=== PATIENT | female | born 1970 | race Caucasian/White ===

== ENCOUNTER 2016-12-27 19:10 | Emergency (ER) | payer OTHER ==
[~2016-12-27] VITALS: Ht 182.9 cm; Wt 130.0 kg
[~2016-12-27 19:10] MED LIST: LEVO125T5 PO; PANT40TA PO
[2016-12-27 19:13] VITALS: TEMP 36.6; Ht 182.9 cm; Wt 130.0 kg
[2016-12-27] MEDS ORDERED: PROPARACAINE HCL 0.5% OP SOLN 15 ML BTL OP STA (19:27)
[2016-12-27] MEDS ORDERED: CIPROFLOXACIN HCL 0.3% OP SOLN 2.5 ML BTL OP ONE (21:45)
[2016-12-27 22:02] VITALS: BP 119/69; PULSE 57; O2SAT 99
--- NOTE | 2016-12-27 22:43 | EMERGENCY ROOM VISIT NOTE ---
History Report prepared by Vianney: Eber Julio Under the Supervision of: Dr. Houston Holland M.D. First contact with patient: 19:16 Chief Complaint: EYE ASSESSMENT Stated Complaint: L EYE IRRITATION History of Present Illness The patient is a 46 year old female who presents to the Emergency Room with complaints of constant, burning discomfort in her left eye beginning an hour ago. She currently rates her discomfort a 6/10 in severity. The patient states that she was doing dishes and splashed Aquaphenate in her eye by accident. She reports that the chemical is stored in a large container with a pump next to the sink. The patient notes that the pump neither works nor does the container close completely. She states that she was taking the pump out of the container, and it must have gotten caught on a shelf and flicked the chemical into her eye. The patient reports that the container states the chemical is corrosive and causes irreversible eye damage. She notes that she used a wet rag and water to clean her eye out. The patient reports that her vision seems okay. She denies wearing glasses and contacts. The patient also denies seeing an eye doctor before. Source of History: patient Onset: an hour ago Position: eye (left) Symptom Intensity: 6/10 Quality: burning Timing: constant Note: Denies: vision changes Review of Systems See HPI for pertinent positives & negatives. A total of 10 systems reviewed and were otherwise negative. Past Medical & Surgical Medical Problems: (1) Hypothyroidism Surgical Problems: (1) H/O colonoscopy (2) History of esophagogastroduodenoscopy (EGD) (3) History of tubal ligation (4) Hx of neck surgery Old medical records were reviewed. Nurse's notes were reviewed and I agree with. Family History Cancer Social History Smoking Status: Never Smoker Alcohol Use: none Drug Use: none Marital Status: Housing Status: lives with family Occupation Status: employed Current/Historical Medications Scheduled Levothyroxine Sodium (Levothyroxine Sodium), 1 TAB PO QAM Allergies Coded Allergies: No Known Allergies (Verified , 12/27/16) Physical Exam Vital Signs Date Time Temp Pulse Resp B/P (MAP) Pulse Ox O2 Delivery O2 Flow Rate FiO2 12/27/16 22:02 57 18 119/69 99 12/27/16 20:36 56 20 143/83 98 Room Air 12/27/16 19:13 36.6 62 19 149/84 97 Room Air Physical Exam General: Middle-aged female, no acute distress, breathing comfortably on room air. Normal speech HEENT: Normal cephalic atraumatic. Pupils are equal round and reactive to light. Left sclera has minimal injection. Extraocular movements are intact. Oropharynx is pink with moist mucous membranes. No swelling of the mouth lips or tongue. Neck: Supple with a midline trachea. No meningeal signs or stiffness, no JVD or bruits. No Stridor. Chest: Clear to auscultation bilaterally. No wheezes or rhonchi. No increased work of breathing. Heart: regular rate and rhythm. Abdomen: Soft nontender, nondistended without rebound guarding or rigidity. Extremities: No cyanosis clubbing or edema. No calf tenderness or assymetry Spine/Back. Non tender to palpation. No CVA tenderness Skin: Good turgor without rashes. No burn noticed. Neurologic exam: Cranial nerves two through 12 are intact. Motor and sensation are intact and symmetrical throughout. Visual Acuity (Post irrigation): Left eye 20/40-1. Right eye 20/25. Medical Decision & Procedures Medications Administered Medications (Trade) Dose Ordered Sig/[place] Route Start Time Stop Time Status Last Admin Dose Admin Proparacaine HCl (Alcaine 0.5% Oph Soln) 2 drops NOW STAT OP 12/27/16 19:27 12/27/16 19:29 DC 12/27/16 19:27 2 DROPS Ciprofloxacin HCl (Ciprofloxacin 0.3% Op Soln) 1 drops NOW ONCE OP 12/27/16 21:45 12/27/16 21:46 DC 12/27/16 21:54 1 DROPS ED Course 1919: Past medical records reviewed. The patient was evaluated in room C05, and a complete history and physical examination were performed. 1926: Ordered Proparacaine HCl 2 drops OP. 1947: I discussed the patient's case with Poison Control. They said it is corrosive and recommended irrigation. They believe it is a neutral chemical. 1957: The patient's eye was irrigated with 1L of fluid. The pH of her eye was 7.0 before and after the irrigation process. I ordered another 2L of fluid to be distributed over 20 minutes. 2031: I reevaluated the patient, and she is almost done the irrigation process. 2110 I checked the patient's visual acuity after irrigation. Refer to the physical exam for findings. 2111: I spoke with Poison Control again. They do not think the patient requires any further work-up. 2131: I discussed the patient's case with Dr. French, Optometry. He recommended giving the patient artificial tears and Ciloxan. 2144: Ordered Ciprofloxacin HCl 1 drop OP 2145: Upon reevaluation, the patient is resting comfortable. I discussed the results and treatment plan with her. She verbalized agreement of the treatment plan. The patient was discharged home. Medical Decision Differential diagnosis includes: chemical exposure, chemical burn, eye injury Medication Reconciliation: I attest that I have personally reviewed the patient' s current medication list. Blood pressure Screening: Patient was found to have normal blood pressure on screening and does not require follow-up. This patient comes in with a chemical exposure to her left eye, this happened about an hour prior to arrival. She did flush it a little bit at work. Her left eye is mildly injected along the sclera. There are vno facial mckeon. I did discuss this with the poison center felt that this was an irritant and was not significantly acidic or basic but near neutral they recommended checking her pH and irrigation. Her pH was 7.0 after liter of using the Justin lens was 7.0 as well, and I gave her a second liter of irrigation. She felt well after this. Her visual acuity is 20/40 minus 1 and 20/25 in the good eye. She does have some clear tearing in the left eye however. She seems less red since she' s been here . I did fluorsein stain her eye and looked at it with the slit lamp. There is no mckeon or significant lesions seen. I do think she can go home and I did discuss case Dr. French, millwright helper on-call, who agrees. We will start on antibiotic drops and artificial tears and they can see her for recheck tomorrow. The patient can call the office . She was given Ciloxan that she use one drop 4 times a day. Return if: Worsening of symptoms, fever or chills, change in vision, any new problems or concerns. Consults Time Called: 1946 Consulting Physician: Poison Control Returned Call: 1947 I discussed the patient's case with Poison Control. They said it is corrosive and recommended irrigation. They believe it is a neutral chemical. Additional Consults: Time Called: 2129 Consulted Physician: Dr. French, Optometry Returned Call: 2131 Additional Comments: I discussed the patient's case with Dr. French, Optometry. He recommended giving the patient artificial tears and Ciloxan. Impression Primary Impression: Chemical exposure of eye Additional Impression: Conjunctivitis Scribe Attestation The scribe's documentation has been prepared under my direction and personally reviewed by me in its entirety. I confirm that the note above accurately reflects all work, treatment, procedures, and medical decision making performed by me. Departure Information Dispostion Home / Self-Care Referrals Margoth Winslow D.O. (PCP) Forms HOME CARE DOCUMENTATION FORM, IMPORTANT VISIT INFORMATION, WORK / SCHOOL INSTRUCTIONS Patient Instructions My [facility] Additional Instructions Rest. Use artificial tears as needed for lubrication Use Ciloxan one drop every 4 hours in the left eye Return if: Increasing pain, problems with her vision, fever or chills, any new prompts concerns Follow-up with Dr. French tomorrow for recheck Problem Qualifiers
== END 2016-12-27 22:03 | disposition home or self-care (01) ==
LOC: C.EDB 19:11 → C.EDC 22:03
DX: H10.212 Acute toxic conjunctivitis, left eye (principal); T54.2X1A Toxic effect of corrosive acids and acid-like substances, accidental (unintentional), initial encounter; Y93.G1 Activity, food preparation and clean up; Y99.0 Civilian activity done for income or pay; Y92.89 Other specified places as the place of occurrence of the external cause; E03.9 Hypothyroidism, unspecified; Z98.51 Tubal ligation status; Z80.9 Family history of malignant neoplasm, unspecified; Z79.899 Other long term (current) drug therapy

== ENCOUNTER 2017-08-26 11:48 | Emergency (ER) | payer OTHER ==
[~2017-08-26] VITALS: Ht 182.9 cm; Wt 114.0 kg
[~2017-08-26 11:48] MED LIST changes: -PANT40TA PO
[2017-08-26 12:06] VITALS: TEMP 36.5; Ht 182.9 cm; Wt 114.0 kg
[2017-08-26 14:15] LABS: BASO % 0.9 %; BASO ABS # 0.06 K/uL (0-0.2); EOS % 12.4 %; EOS ABS # 0.83 K/uL (0-0.5); HEMATOCRIT 41.2 % (37-47); HEMOGLOBIN 14.5 g/dL (12.0-16.0); IG# 0.01 K/uL (0.00-0.02); LYMPH % 35.4 %; LYMPH ABS # 2.36 K/uL (1.2-3.4); MEAN CELL VOLUME 88.4 fL (80-100); MEAN CORPUSCULAR HEMOGLOBIN 31.1 pg (25-34); MEAN CORPUSCULAR HGB CONC 35.2 g/dl (32-36); MEAN PLATELET VOLUME 9.1 fL (7.4-10.4); MONO % 7.3 %; MONO ABS # 0.49 K/uL (0.11-0.59); NEUT % 43.9 %; NEUT ABS # 2.92 K/uL (1.4-6.5); PLATELET COUNT 254 K/uL (130-400); RED CELL DISTRIBUTION WIDTH CV 12.8 % (11.5-14.5); RED CELL DISTRIBUTION WIDTH SD 41.2 fL (36.4-46.3); WHITE BLOOD COUNT 6.67 K/uL (4.8-10.8)
--- NOTE | 2017-08-26 14:15 | EMERGENCY ROOM VISIT NOTE ---
History Report prepared by Vianney: Romulo Le Under the Supervision of: Dr. Mary Jacobs D.O. First contact with patient: 13:40 Chief Complaint: HYPERTENSION Stated Complaint: HIGH BLOOD PRESSURE History of Present Illness The patient is a 47 year old female who presents to the Emergency Room with complaints of constant high blood pressure starting yesterday. The patient states that she was driving home from work, and she "felt outside of herself". She then took her blood pressure and it was up to 211, and today she was having similar feelings, and the blood pressure was in the 200s in the left arm and lower on the right. She reports that she has been feeling weak, light headed, and she has some blurry vision. She denies any headache, chest pain, shortness of breath, abdominal pain, nausea, vomiting, leg swelling, black stools, bloody stools, and urinary symptoms. The patient states that she has recently started to drink soda again. Source of History: patient Onset: yesterday Position: other (global) Quality: other (high blood pressure) Timing: constant Associated Symptoms: + weakness, No headache, No chest pain, No SOB, No nausea, No vomiting, No abdominal pain, No urinary symptoms Note: Associated symptoms: light headed and blurry vision. Review of Systems See HPI for pertinent positives & negatives. A total of 10 systems reviewed and were otherwise negative. Past Medical & Surgical Medical Problems: (1) Hypothyroidism Surgical Problems: (1) H/O colonoscopy (2) History of esophagogastroduodenoscopy (EGD) (3) History of tubal ligation (4) Hx of neck surgery Family History Cancer Social History Smoking Status: Never Smoker Alcohol Use: none Drug Use: none Marital Status: Housing Status: lives with family Occupation Status: employed Current/Historical Medications Scheduled Levothyroxine Sodium (Levothyroxine Sodium), 1 TAB PO DAILY Allergies Coded Allergies: No Known Allergies (Verified , 08/26/17) Physical Exam Vital Signs Date Time Temp Pulse Resp B/P (MAP) Pulse Ox O2 Delivery O2 Flow Rate FiO2 08/26/17 16:02 48 20 140/80 98 08/26/17 15:30 50 20 133/80 95 Room Air 08/26/17 15:00 51 18 133/78 97 Room Air 08/26/17 13:48 179/89 08/26/17 12:06 36.5 48 16 154/86 96 Room Air Physical Exam GENERAL: alert, well appearing, well nourished, no distress, non-toxic EYE EXAM: normal conjunctiva, PERRL and EOM's grossly intact OROPHARYNX: no exudate, no erythema, lips, buccal mucosa, and tongue normal and mucous membranes are moist NECK: supple, no nuchal rigidity, no adenopathy, non-tender LUNGS: Clear to auscultation. Normal chest wall mechanics HEART: no murmurs, S1 normal and S2 normal ABDOMEN: abdomen soft, non-tender, normo-active bowel sounds, no masses, no rebound or guarding. BACK: Back is symmetrical on inspection and there is no deformity, no midline tenderness, no CVA tenderness. SKIN: no rashes and no bruising UPPER EXTREMITIES: upper extremities are grossly normal. LOWER EXTREMITIES: No pitting edema. NEURO EXAM: Normal sensorium, cranial nerves II-XII grossly intact, normal speech, no gross weakness of arms, no gross weakness of legs. Medical Decision & Procedures ER Provider Diagnostic Interpretation: Radiology results have been interpreted by the radiologist and reviewed by me. HEAD CT NONCONTRAST CT DOSE: 614.27 mGy.cm HISTORY: lightheaded, htn TECHNIQUE: Multiaxial CT images of the head were performed without the use of intravenous contrast. Automated exposure control was utilized for this study. A dose lowering technique was utilized adhering to the principles of ALARA. Comparison: Brain MRI 10/21/2012. Findings: Complete opacities in the right maxillary sinus and left frontal sinus. Near-complete opacification of the ethmoid air cells. Moderate mucosal thickening within the left maxillary sinus. Trace fluid level within the sphenoid sinuses. The mastoid air cells are clear. The calvarium and skull base are intact. The ventricles and sulci are within normal limits. There is no mass, hematoma, midline shift, or acute infarct. Impression: No acute intracranial abnormality. Acute on chronic paranasal sinus disease as described above. Electronically signed by: Octavio Cardoza M.D. 08/26/2017 2:52 PM Dictated Date/Time: 08/26/2017 2:45 PM CHEST ONE VIEW PORTABLE CLINICAL HISTORY: htn dyspnea COMPARISON STUDY: 08/10/2014 FINDINGS: The bones soft tissues and hemidiaphragms are normal. The cardiomediastinal silhouette is normal. The lungs are clear. The pulmonary vasculature is normal. IMPRESSION: Negative chest. The above report was generated using voice recognition software. It may contain grammatical, syntax or spelling errors. Electronically signed by: Mitchell Figueroa M.D. 08/26/2017 2:56 PM Dictated Date/Time: 08/26/2017 2:56 PM Laboratory Results 08/26/17 10:45 Red Blood Count 4.66, Mean Corpuscular Volume 88.4, Mean Corpuscular Hemoglobin 31.1, Mean Corpuscular Hemoglobin Concent 35.2, Mean Platelet Volume 9.1, Neutrophils (%) (Auto) 43.9, Lymphocytes (%) (Auto) 35.4, Monocytes (%) (Auto) 7.3, Eosinophils (%) (Auto) 12.4, Basophils (%) (Auto) 0.9, Neutrophils # (Auto ) 2.92, Lymphocytes # (Auto) 2.36, Monocytes # (Auto) 0.49, Eosinophils # (Auto ) 0.83, Basophils # (Auto) 0.06 08/26/17 10:45 Test 08/26/17 10:45 08/26/17 14:25 White Blood Count 6.67 K/uL (4.8-10.8) Red Blood Count 4.66 M/uL (4.2-5.4) Hemoglobin 14.5 g/dL (12.0-16.0) Hematocrit 41.2 % (37-47) Mean Corpuscular Volume 88.4 fL (80-100) Mean Corpuscular Hemoglobin 31.1 pg (25-34) Mean Corpuscular Hemoglobin Concent 35.2 g/dl (32-36) Platelet Count 254 K/uL (130-400) Mean Platelet Volume 9.1 fL (7.4-10.4) Neutrophils (%) (Auto) 43.9 % Lymphocytes (%) (Auto) 35.4 % Monocytes (%) (Auto) 7.3 % Eosinophils (%) (Auto) 12.4 % Basophils (%) (Auto) 0.9 % Neutrophils # (Auto) 2.92 K/uL (1.4-6.5) Lymphocytes # (Auto) 2.36 K/uL (1.2-3.4) Monocytes # (Auto) 0.49 K/uL (0.11-0.59) Eosinophils # (Auto) 0.83 K/uL (0-0.5) Basophils # (Auto) 0.06 K/uL (0-0.2) RDW Standard Deviation 41.2 fL (36.4-46.3) RDW Coefficient of Variation 12.8 % (11.5-14.5) Immature Granulocyte % (Auto) 0.1 % Immature Granulocyte # (Auto) 0.01 K/uL (0.00-0.02) Prothrombin Time 10.1 SECONDS (9.0-12.0) Prothromb Time International Ratio 1.0 (0.9-1.1) Anion Gap 7.0 mmol/L (3-11) Est Creatinine Clear Calc Drug Dose 150.2 ml/min Estimated GFR () 121.4 Estimated GFR (Non- 104.8 BUN/Creatinine Ratio 19.4 (10-20) Calcium Level 9.1 mg/dl (8.5-10.1) Magnesium Level 2.0 mg/dl (1.8-2.4) Total Bilirubin 0.7 mg/dl (0.2-1) Aspartate Amino Transf (AST/SGOT) 25 U/L (15-37) Alanine Aminotransferase (ALT/SGPT) 34 U/L (12-78) Alkaline Phosphatase 78 U/L (45-117) Troponin I < 0.015 ng/ml (0-0.045) Total Protein 8.0 gm/dl (6.4-8.2) Albumin 4.0 gm/dl (3.4-5.0) Globulin 4.0 gm/dl (2.5-4.0) Albumin/Globulin Ratio 1.0 (0.9-2) Thyroid Stimulating Hormone (TSH) 3.740 uIu/ml (0.300-4.500) Human Chorionic Gonadotropin, Qual NEG (NEG) Urine Color YELLOW Urine Appearance CLEAR (CLEAR) Urine pH 5.0 (4.5-7.5) Urine Specific [place] 1.020 (1.000-1.030) Urine Protein NEG (NEG) Urine Glucose (UA) NEG (NEG) Urine Ketones 1+ (NEG) Urine Occult Blood NEG (NEG) Urine Nitrite NEG (NEG) Urine Bilirubin NEG (NEG) Urine Urobilinogen NEG (NEG) Urine Leukocyte Esterase NEG (NEG) Laboratory results per my review. ECG Per My Interpretation Indication: other (hypertension) Rate (beats per minute): 50 Rhythm: sinus bradycardia Findings: T-wave inversion (isolated in lead 3), no acute ischemic change, no ectopy, other (normal interval and normal axis) ED Course 1340: The patient was evaluated in room B12. A complete history and physical exam was performed. 1506: Upon reevaluation, the patient is feeling better. I discussed the findings and the treatment plan with the patient. She verbalizes agreement and understanding. She was discharged home. Medical Decision Differential diagnosis: Etiologies such as metabolic, infection, hypo/hyperglycemia, electrolyte abnormalities, cardiac sources, intracerebral event, toxicologic, neurologic, as well as others were entertained. Patient well-appearing here, no symptoms at bedside to suggest hypertensive urgency/emergency. Blood pressure markedly improved here compared to that at home. I did examine the patient's blood pressure if she was using at home and is a small digital forearm device. Discussed with patient frequency and use of this device for blood pressure monitoring at home. Discussed avoidance of salt in her diet as patient states she has been drinking more soda unless water recently. Discussed adequate hydration. Discussed all results of testing here. Patient with a normal nonfocal neuro exam, no evidence of intracranial pathology, I do not suspect increased intracerebral pressure CVA. Doubt ACS, cardiac myopathy, acute kidney failure, occult infectious etiology. Symptoms and exam not consistent with dissection or worsening aneurysm. Discussed with patient close follow-up with family doctor, symptoms to watch and return for, she verbalized understanding was agreeable to plan. Medication Reconcilliation Current Medication List: was personally reviewed by me Blood Pressure Screening Patient's blood pressure: Elevated blood pressure Blood pressure disposition: Referred to PCP Impression Primary Impression: Hypertension Additional Impression: Hypokalemia Scribe Attestation The scribe's documentation has been prepared under my direction and personally reviewed by me in its entirety. I confirm that the note above accurately reflects all work, treatment, procedures, and medical decision making performed by me. Departure Information Dispostion Home / Self-Care Referrals Margoth Winslow D.O. (PCP) Forms HOME CARE DOCUMENTATION FORM, IMPORTANT VISIT INFORMATION, WORK / SCHOOL INSTRUCTIONS Patient Instructions My [facility] Additional Instructions Please call and follow up with your family doctor to recheck your blood pressure and also recheck your thyroid. Please continue your thyroid medication as prescribed. Please drink more water and avoid any additional salt in your diet. If you have any recurrent "strange feelings", develop headaches, dizziness, vision changes, chest pain, numbness or tingling, weakness , or unable to walk, develop nausea or vomiting, or you've any other new concerns, please return the emergency room. Problem Qualifiers Primary Impression: Hypertension Hypertension type: unspecified Qualified Codes: I10 - Essential (primary) hypertension
[2017-08-26 14:38] LABS: ALT/SGPT 34 U/L (12-78); AST/SGOT 25 U/L (15-37); BLOOD UREA NITROGEN 12 mg/dl (7-18); CALCIUM 9.1 mg/dl (8.5-10.1); CARBON DIOXIDE 26 mmol/L (21-32); CREATININE 0.64 mg/dl (0.60-1.20); GLUCOSE 84 mg/dl (70-99); POTASSIUM 3.3 mmol/L (3.5-5.1); SODIUM 138 mmol/L (136-145)
[2017-08-26] MEDS ORDERED: LEVO150T9 PO (14:46)
[2017-08-26 14:49] LABS: ALKALINE PHOSPHATASE 78 U/L (45-117)
--- NOTE | 2017-08-26 14:53 | DIAGNOSTIC IMAGING REPORT ---
HEAD CT NONCONTRAST CT DOSE: 614.27 mGy.cm HISTORY: lightheaded, htn TECHNIQUE: Multiaxial CT images of the head were performed without the use of intravenous contrast. Automated exposure control was utilized for this study. A dose lowering technique was utilized adhering to the principles of ALARA. Comparison: Brain MRI 10/21/2012. Findings: Complete opacities in the right maxillary sinus and left frontal sinus. Near-complete opacification of the ethmoid air cells. Moderate mucosal thickening within the left maxillary sinus. Trace fluid level within the sphenoid sinuses. The mastoid air cells are clear. The calvarium and skull base are intact. The ventricles and sulci are within normal limits. There is no mass, hematoma, midline shift, or acute infarct. Impression: No acute intracranial abnormality. Acute on chronic paranasal sinus disease as described above. Electronically signed by: Octavio Cardoza M.D. 08/26/2017 2:52 PM Dictated Date/Time: 08/26/2017 2:45 PM
--- NOTE | 2017-08-26 14:58 | DIAGNOSTIC IMAGING REPORT ---
CHEST ONE VIEW PORTABLE CLINICAL HISTORY: htn dyspnea COMPARISON STUDY: 08/10/2014 FINDINGS: The bones soft tissues and hemidiaphragms are normal. The cardiomediastinal silhouette is normal. The lungs are clear. The pulmonary vasculature is normal. IMPRESSION: Negative chest. The above report was generated using voice recognition software. It may contain grammatical, syntax or spelling errors. Electronically signed by: Mitchell Figueroa M.D. 08/26/2017 2:56 PM Dictated Date/Time: 08/26/2017 2:56 PM
[2017-08-26 16:02] VITALS: BP 140/80; PULSE 48; O2SAT 98
== END 2017-08-26 16:04 | disposition home or self-care (01) ==
LOC: C.EDB 11:49
DX: I10 Essential (primary) hypertension (principal); E87.6 Hypokalemia; E03.9 Hypothyroidism, unspecified

== ENCOUNTER 2020-05-19 12:46 | Observation (INO) ==
--- NOTE | 2020-05-05 16:10 | Anesthesiology Consultation ---
Date of Service May 05, 2020 Assessment & Plan (1) Encounter for pre-operative examination: Chart Review Chart Review: Acceptable Risk for Surgery (pending preop Covid testing ) and Patient NOT seen in Pre Admission Testing Per nursing assessment 05/05/20, patient resides in [facility]. Traveled to [place] for shopping and [place], [place] for [place]. Uses PPE. No known Covid positive contacts or Covid related symptoms. Per patient, getting Covid test done at least two days prior to procedure. History Surgery Operation Date: 05/19/20 07:15 Proposed Procedures p Laparoscopic Repair Ventral Hernia with Mesh, Possible Open - Lorin Johnson MD Height/Weight Height: 6 ft Weight: 138.346 kg Allergies Allergy/AdvReac Type Severity Reaction Status Date / Time No Known Allergies Allergy Verified 05/05/20 14:14 Medications Home Medications Medication Instructions Recorded Confirmed Last Taken levothyroxine 150 mg PO QAM 09/01/18 05/05/20 Unknown cyclobenzaprine 10 mg PO QID PRN 05/05/20 05/05/20 Unknown meloxicam 7.5 mg PO PM 05/05/20 05/05/20 Unknown Past Medical History Medical History Arthritis Hypothyroidism IBS (irritable bowel syndrome) Past Surgical History Surgical History H/O colonoscopy "09/2014 - congested and erythematous mucousa in the terminal ileum, congested and "bumpy" mucousa from the anus to the colon. Pathology negative. " History of endometrial ablation History of esophagogastroduodenoscopy (EGD) "09/2014 - normal" History of tubal ligation Hx laparoscopic cholecystectomy Hx of left inguinal hernia repair Hx of neck surgery gland removed from neck area age 8 Social History Smoking Status: Never smoker Do You Dip or Chew Tobacco: No Hx Alcohol Use: No Hx Substance Use: No substance use type: does not use Testing Laboratory Results 04/30/2020 = WBC: 7.99 H/H: 15.1/45.4 PLATELETS: 302 SODIUM: 140 POTASSIUM: 4.1 CHLORIDE: 106 CO2: 28 BUN: 10 CREATININE: 0.7 GLUCOSE: 95 TSH: 1.39 Electrocardiogram Date: 04/30/20 Findings: + NSR @ (60) Left axis deviation. When compared to EKG from October 29, 2015no significant change was found per cardio. Echocardiogram Date: 09/11/14 EF: 64% LV Function: normal RWMA: + none Valvular Disease: + no significant valvular disease
[~2020-05-19 12:46] MED LIST changes: +LACTATED RINGER'S 1,000 ML IV SCH; -LEVO125T5 PO; +MIDAZOLAM HCL 1 MG/ML 2ML VIAL ONE; +fentaNYL citrate 100 MCG/2 ML VIAL ONE
--- OUTSIDE RECORDS SUMMARY | 2020-05-19 12:50 | External Medical Summary | Continuity of Care Document ---
:1970 Author Name Subha Lundberg Address Unavailable Unavailable , Care Team Providers Name Role Phone Unavailable Unavailable Unavailable NEWHOUSER, A Unavailable Unavailable Unavailable Unavailable Unavailable Problems Chronic cholecystitis (575.11) (K81.1) Chronic pain (338.29) (G89.29) Umbilical hernia (553.1) (K42.9) Biliary dyskinesia (575.8) (K82.8) Arthritis (716.90) (M19.90) Allergies and Adverse Reactions No Known Drug Allergies (Allergy) Medications Levothyroxine Sodium 175 MCG Oral Tablet; TAKE 1 TABLET ODILIA Salter M.D. Start: 27-Sep-2014 Refills: 0 Pantoprazole Sodium 40 MG Oral Tablet Delayed Release; TAKE 1 TABLET Tamika JEFFREY Start: 27-Sep-2014 Refills: 0 Procedures History of Biopsy Lymph Node Status: Com pleted History of Hysteroscopy With Endometrial Ablation Status: Completed History of Tubal Ligation Status: Comple coral Immunizations Immunizations not documented Family History Mother Family history of diabetes mellitus (V18.0) (Z83.3) Status: Active Family history of hypertension (V17.49) (Z82.49) Status: Act keith Family history of malignant neoplasm (V16.9) (Z80.9) Status: Active Grandparent Family history of malignant neoplasm (V16.9) (Z80.9) Status: Active Grandfather Family history of cardiac disorder (V17.49) (Z82.49) Status: Active cousin Family history of malignant neoplasm of breast (V16.3) (Z80. 3) Status: Active Family history of cerebrovascular accident (V17.1) (Z82.3) S tatus: Active Social History - Smoking Status Never smoked tobacco Plan of Treatment Planned Observations Planned Goals not documented Results No Known Results Results not documented
[2020-05-19] MEDS ORDERED: ATROPINE SULFATE 0.1 MG/ML 10ML SYR IV PRN (13:44)
[2020-05-19] MEDS ORDERED: ONDANSETRON INJ 2 MG/ML 2 ML VIAL IV PRN ×2 (13:44→17:00)
[2020-05-19] MEDS ORDERED: PROMETHAZINE HCL 12.5 MG in SODIUM CHLORIDE 0.9% 50 ML IV PRN (13:44)
[2020-05-19] MEDS ORDERED: HYDROmorphone INJ 2 MG/ML SYR/VIAL IV PRN (13:44)
[2020-05-19] MEDS ORDERED: ePHEDrine sulfate 50 MG/ML AMP IV PRN (13:44)
[2020-05-19] MEDS ORDERED: fentaNYL citrate 100 MCG/2 ML VIAL IV PRN (13:44)
[2020-05-19] MEDS ORDERED: BUPIVACAINE 0.5 % 5 MG/1 ML MPF 30ML VIAL ONE (14:12)
[2020-05-19] MEDS ORDERED: LIDOCAINE HCL 1% 20 ML VIAL ONE (14:12)
[2020-05-19] MEDS ORDERED: BACITRACIN OINT 15 GM TUBE ONE (14:12)
[2020-05-19] MEDS ORDERED: ceFAZolin 2000MG 2,000 MG/15 ML SYR IV ONE (14:45)
--- NOTE | 2020-05-19 14:45 | History & Physical Bridge Note ---
Date of Service May 19, 2020 History & Physical Bridge Note I have examined the patient, reviewed the History & Physical and in the interval since the performance of the History & Physical I have noted the following changes of clinical significance: no changes noted
[2020-05-19] MEDS ORDERED: PROPOFOL IV EMULSION 10 MG/ML 20 ML VIAL IV ONE (15:20)
[2020-05-19] MEDS ORDERED: LARYING-O-JET KIT (LTA) ONE (15:20)
[2020-05-19] MEDS ORDERED: ROCURONIUM BROMIDE 10 MG/ML 5 ML VIAL IV ONE ×2 (15:20→16:14)
[2020-05-19] MEDS ORDERED: ePHEDrine sulfate 50 MG/ML SYR ONE (15:20)
[2020-05-19] MEDS ORDERED: DEXAMETHASONE SOD INJ 4 MG/ML VIAL ONE (15:20)
[2020-05-19] MEDS ORDERED: ONDANSETRON INJ 2 MG/ML 2 ML VIAL ONE (15:20)
[2020-05-19] MEDS ORDERED: LIDOCAINE HCL 2% 2 ML VIAL/AMP(20MG/ML) INFIL ONE (15:20)
[2020-05-19] MEDS ORDERED: NEOSTIGMINE METHYLSULFATE 5 MG/5 ML SYR ONE (15:20)
[2020-05-19] MEDS ORDERED: GLYCOPYRROLATE 0.2 MG/ML VIAL ONE (15:20)
[2020-05-19] MEDS ORDERED: fentaNYL citrate 100 MCG/2 ML VIAL ONE (15:24)
[2020-05-19] MEDS ORDERED: KETOROLAC 30 MG/ML VIAL ONE (15:27)
--- NOTE | 2020-05-19 16:45 | Post Operative Brief Note ---
Immediate Post Op Note v1 Date of Surgery May 19, 2020 Pre & Post Diagnosis Operation Date: 05/19/20 14:45 Pre-Op Diagnosis: Ventral Hernia Without Obstruction or Gangrene Post-Op Diagnosis: Ventral Hernia Without Obstruction or Gangrene I identified the patient and participated in the time-out.: Yes Procedure Operation Date: 05/19/20 14:45 Actual Procedures p Laparoscopic Repair Ventral Hernia with Mesh(Not Applicable) - Lorin Johnson MD Surgeon Lorin Johnson MD [facility] Director senior technical business analyst Estimated Blood Loss 10 Findings Consistent with Post-Op Diagnosis ventral hernia, size about 3x4cm, Fluids 1300ml Specimens none Drains Tierney Catheter ([id number]) Anesthesia Type General Complications none Disposition Accompanied Patient To Recovery: Yes Disposition: Recovery Room Overlapping Procedure I was immediately available: during the entire case.
--- NOTE | 2020-05-19 18:00 | Anesthesiology Progress Note ---
Date of Service May 19, 2020 Anesthesia Post Procedure Vital Signs Vital Signs: Temp Pulse Pulse Resp BP Pulse Ox 05/19/20 17:55 48 L 14 127/72 98 05/19/20 17:45 45 L 14 126/67 98 05/19/20 17:35 36.5 C 50 L 14 136/69 97 05/19/20 17:25 57 L 14 140/68 94 05/19/20 17:15 54 L 13 129/72 99 05/19/20 17:05 57 L 13 133/60 96 05/19/20 16:59 36.7 C 54 L 14 109/95 96 05/19/20 13:15 36.5 C 66 18 109/81 94 Pain Intensity Abdomen: Pain Intensity: 5 Transfer of Care Handoff Completed per policy Notes Mental Status: alert / awake / arousable and participated in evaluation Patient Amnestic to Procedure: Yes Nausea / Vomiting: adequately controlled Pain: adequately controlled Airway Patency, RR, SpO2: stable & adequate BP & HR: stable & adequate Hydration State: stable & adequate Anesthetic Complications: no major complications apparent and Pt Satisfied with anesthetic care
[2020-05-19] MEDS ORDERED: HYDROmorphone INJ 0.5 MG/0.5 ML SYR IV PRN (18:14)
[2020-05-19] MEDS ORDERED: CYCLOBENZAPRINE HCL 10 MG TAB PO PRN (18:25)
[2020-05-19] MEDS: oxyCODONE/ACETAMINOPHEN 5mg/325mg TAB PO PRN (18:58)
[2020-05-19] MEDS: LACTATED RINGER'S 1,000 ML IV SCH (20:55)
[2020-05-19] MEDS ORDERED: MELOXICAM 7.5 MG TAB PO SCH (21:00)
[2020-05-19] MEDS: ceFAZolin 1000MG 1,000 MG/7.5 ML SYR IV SCH (21:58)
--- NOTE | 2020-05-20 01:53 | Operative Report (OR) ---
DATE OF OPERATION: 05/19/2020 PREOPERATIVE DIAGNOSIS: Ventral hernia. POSTOPERATIVE DIAGNOSIS: Ventral hernia. OPERATION: Laparoscopic repair of ventral hernia using mesh. SURGEON: Lorin Johnson MD. ANESTHESIA: General. ESTIMATED BLOOD LOSS: About 10 mL. FINDINGS: Ventral hernia size about 3 x 4 cm. COMPLICATIONS: None. INDICATIONS FOR THE PROCEDURE: This is a 50-year-old female who presented with symptomatic ventral hernia. The patient required to do the last laparoscopy, repair of ventral hernia with mesh, possible open. I did talk to the patient about the benefit, risk, alternate procedure. I indicated the risks may include but not limited such as bleeding, infection, hernia recurrence, seroma, complication related to mesh, injury to the bowel, bowel obstruction. The patient understands that she signed informed consent and I answered all questions. DETAILS OF PROCEDURE: We brought the patient to the OR, put the patient in the supine position. The patient received SCD on bilateral legs to prevent DVT and also the patient received 2 grams of Ancef IV for prophylactic antibiotic. The patient received general anesthesia without difficulty. Abdomen was prepped and draped in routine sterile fashion; however, also, patient received Tierney catheter insertion after general anesthesia. The abdomen was prepped and draped in routine sterile fashion. After timeout, I injected the local anesthesia by using 1% lidocaine mixed with 0.5% Marcaine, on the right side of the abdomen, made about a 2 cm incision, on the right side of the abdomen, opened the anterior fascia and posterior fascia and opened the peritoneum under direct vision, put a Jane trocar in, connected to CO2 to create pneumoperitoneum. Flow rate at 6 liter per minute. Pressure not more than 14 mmHg. Once we got a nice pneumoperitoneum, we put the camera in, looked around the abdomen. The patient had a ventral hernia with omental fat, hernia sac content. Then, we put another one 5 mm trocar on the right side of the abdomen, another 5 mm trocar on the right side of the abdomen, one is above camera, one is below camera. Once all trocars in, we reduced the hernia and the sac content and omental fat back to the abdominal cavity. We measured the ventral hernia size about 3 x 4 cm. Then I chose a 10 x 15 cm mesh to repair the hernia. We sutured 2-0 Prolene at 4 points on the mesh and put the mesh into the abdominal cavity. Then, I used 2-0 V-Loc suture to close the hernia neck and also we removed partially the hernia sac, reduced the abdominal cavity. Then we used pass suture needle through the abdomen to pull all of 2-0 Prolene to come out of the abdominal wall at 4 points. Then we tied 2-0 Prolene one by one. Once we tied, then we used nataly to tuck the mesh to abdominal wall, the mesh seated nicely, no tension. Hemostasis was obtained. Then I removed all trocar under direct vision. No active bleeding from the trocar sites. I rechecked, then we removed all the trocars, released pneumoperitoneum. Before we removed all trocar, we used the camera in, looked around the abdomen, no injury to the bowel, no active bleeding. Once we removed all trocars, released the pneumoperitoneum, we closed the posterior fascial layer by using 0 Vicryl [id number] x2, closed the anterior fascia by using 2-0 Vicryl [id number] x2, closed subcutaneous layer by using 2-0 Vicryl interruptedly, closed skin by using 4-0 Vicryl continuous running, closed another two 5 mm trocar site skin only by using 4-0 Vicryl. Then, we put the dressing on. The patient tolerated the procedure well. All instrument, needle, sponge count were correct x2 at the end of the case. The patient transferred to recovery room in stable condition. In order to good control of postoperative pain, we will admit the patient to the hospital overnight for observation. The patient and patient's agrees. I attest to the content of the Intraoperative Record and any orders documented therein. Any exceptions are noted below. GABRIELA
[2020-05-20] MEDS: ceFAZolin 1000MG 1,000 MG/7.5 ML SYR IV SCH (05:55)
[2020-05-20] MEDS ORDERED: LEVOTHYROXINE SODIUM 150 MCG TABLET PO SCH (06:30)
[2020-05-20] MEDS: LACTATED RINGER'S 1,000 ML IV SCH (07:51)
[2020-05-20] MEDS: oxyCODONE/ACETAMINOPHEN 5mg/325mg TAB PO PRN (08:58)
[2020-05-20] MEDS ORDERED: MULTIVITAMIN TAB PO SCH (09:00)
[2020-05-20] MEDS ORDERED: CHOLECALCIFEROL 1,000 UNITS 25 MCG TAB PO SCH (09:00)
--- NOTE | 2020-05-20 11:12 | Surgery Progress Note ---
Date of Service F/U S/P laparoscopic repair ventral hernia with mesh, POD 1 pt is doing fine, OOB, good control surgical pain, no nsusea, no vomiting, tolerated diet, no fever. May 20, 2020 Assessment & Plan Admission and Anticipated Discharge Date Admission Date: May 19, 2020 05/20/2020 11:11AM POD 1 doing fine, discharge home today, post-op care instruction was given, F/U 2 weeks, Physical Exam Constitutional: WD/WN, vitals as above well developed and well nourished Eyes: PERRL, conjunctivae normal, anicteric sclerae ENMT: external ear and nose normal, oropharynx normal Neck: trachea midline, no thyromegaly Respiratory: normal respiratory effort, lungs clear to auscultation normal respiratory effort Cardiovascular: RRR, no murmur, no edema Rate/Rhythm: regular rate and regular rhythm Gastrointestinal (Abdomen): soft, mild tenderness, no rebound pain, no distend. all dressing intact, no drainage. Musculoskeletal: no cyanosis or clubbing, extremities motor strength 5/5 Skin: no rashes, warm and dry Neurologic: awake Psychiatric: Orientation: alert and oriented x 3 Results & Data ([facility]) Vital Signs (Past 12 Hours) Vital Signs Temp Pulse Resp BP Pulse Ox 05/20/20 02:48 36.7 C 98 H 18 125/83 90 05/20/20 00:20 37.1 C 80 20 121/74 94
[2020-05-20] MEDS ORDERED: POLYETHYLENE (MIRALAX) 17 GM PACK PO SCH (11:30)
--- NOTE | 2020-05-21 01:47 | Discharge Summary (DS) ---
ADMITTING DIAGNOSIS: Ventral hernia, post-stat ventral hernia repair. DISCHARGE DIAGNOSIS: Ventral hernia, post-stat ventral hernia repair. OPERATION: Laparoscopic repair of ventral hernia with mesh. SURGEON: Lorin Johnson MD. DETAILS OF DISCHARGE SUMMARY: This is a 50-year-old female who presented with symptomatic ventral hernia. The patient required to do the laparoscopic repair of ventral hernia. We took the patient to the OR on 05/19/2020, we did the laparoscopic repair of ventral hernia with mesh and the patient tolerated the procedure well and after procedure in order to control the surgical pain, we decided to admit the patient to the hospital overnight, got good comfort to pain and patient agreed, so the patient stayed overnight, patient is doing fine. Able to get out of the bed and walk around, eating a regular diet. No nausea, no vomiting, no temperature. PHYSICAL EXAMINATION: VITAL SIGNS: Temperature is 36.7, respiratory rate 18, heart rate 98, blood pressure 125/83, O2 saturation 98% on room air. GENERAL: The patient is alert, awake, oriented x3. HEENT: Within normal limitation. NEUROLOGIC: Intact. NECK: No JVD. CHEST: Bilateral lung sounds clear. HEART: Normal S1, S2. No murmurs. ABDOMEN: Soft, mild tenderness on the incision site. Nondistended, no rebound pain. Bowel sounds positive. All incisions intact. No redness. EXTREMITIES: No edema. PLAN: The patient wanted to go home. We gave the patient postop care instruction. I will follow up outpatient in 2 weeks.
== END 2020-05-20 12:47 | disposition home or self-care (01) ==
LOC: 3N 12:46 → ASU 12:46

== ENCOUNTER 2021-08-30 20:16 | Observation (INO) ==
[2021-08-30] MEDS ORDERED: ONDANSETRON INJ 2 MG/ML 2 ML VIAL IV STA (20:35)
[2021-08-30] MEDS ORDERED: MoRPHine SULFATE 4 MG/ML 1 ML CARP\\VIAL IV STA (20:35)
[2021-08-30 21:33] LABS: Basophils # (auto) 0.05 K/uL (0-0.2); Basophils % (auto) 0.4 %; Eosinophils # (auto) 3.59 K/uL (0-0.5); Eosinophils % (auto) 29.3 %; Hematocrit (blood only) 43.1 % (37-47); Hemoglobin 14.8 g/dL (12.0-16.0); Immature Granulocytes # (auto) 0.03 K/uL (0.00-0.02); Immature Granulocytes % (auto) 0.2 %; Lymphocytes # (auto) 2.77 K/uL (1.2-3.4); Lymphocytes % (auto) 22.6 %; Mean Corpuscular Hemoglobin 31.4 pg (25-34); Mean Corpuscular Hgb Conc 34.3 g/dL (32-36); Mean Corpuscular Volume 91.3 fL (80-100); Mean Platelet Volume 9.1 fL (7.4-10.4); Monocytes # (auto) 0.76 K/uL (0.11-0.59); Monocytes % (auto) 6.2 %; Neutrophils # (auto) 5.06 K/uL (1.4-6.5); Neutrophils % (auto) 41.3 %; Platelet Count 261 K/uL (130-400); RDW Coefficient of Variation 13.1 % (11.5-14.5); RDW Standard Deviation 43.5 fL (36.4-46.3); Red Blood Count 4.72 M/uL (4.2-5.4); White Blood Count 12.26 K/uL (4.8-10.8)
[2021-08-30 21:47] LABS: Appearance Urine Clear (Clear); Bilirubin Urine Negative (Negative); Blood Urine Negative (Negative); Color Urine Dark Yellow; Glucose Urine UA Negative (Negative); Ketones Urine Trace (Negative); Leukocyte Esterase Urine Negative (Negative); Nitrite Urine Negative (Negative); Protein Urine Negative (Negative); Specific Gravity Urine 1.024 (1.000-1.030); Urobilinogen Urine Negative (Negative); pH Urine 5.5 (4.5-7.5)
[2021-08-30 21:54] LABS: Anion Gap 6 (3-11); BUN Creatinine Ratio 18.9 (10-20); Blood Urea Nitrogen 14 mg/dl (6-23); Calcium 9.1 mg/dl (8.5-10.1); Carbon Dioxide 27 mmol/L (21-32); Chloride 104 mmol/L (98-107); Creatinine Clr Calc Pharmacy 136.8 ml/min; Est GFR (African American) 107.2 ml/min; Est GFR (Non-African American) 92.5 ml/min; Glucose 106 mg/dl (70-99(Fasting)); Potassium 3.3 mmol/L (3.5-5.1); Sodium 137 mmol/L (136-145)
[2021-08-30 21:55] LABS: Alanine Aminotransferase 30 U/L (7-52); Albumin Globulin Ratio 1.5 (0.9-2); Alkaline Phosphatase 99 U/L (34-104); Aspartate Aminotransferase 47 U/L (13-39); Bilirubin,Total 0.6 mg/dl (0.2-1.0); Globulin 2.7 gm/dl (2.5-4.0); Total Protein 6.7 gm/dl (6.0-8.3)
[2021-08-30 21:56] LABS: Troponin I < 0.03 ng/ml (0-0.04)
[2021-08-30 22:05] LABS: Lipase 1330 U/L (11-82)
[2021-08-30] MEDS ORDERED: OPTIRAY 320 125ml IV ONE (22:37)
[2021-08-30] MEDS ORDERED: PANTOprazole 40 MG TAB PO STA (23:56)
[2021-08-30] MEDS ORDERED: FAMOTIDINE 20MG/5ML IV PUSH IV STA (23:57)
[2021-08-31] MEDS ORDERED: NORCO 5/325MG HOMEPACK PO ONE (00:34)
[2021-08-31] MEDS ORDERED: SODIUM CHLORIDE 0.9% 1000ML 1,000 ML IV STA (01:21)
--- NOTE | 2021-08-31 01:21 | Emergency Department Note ---
History of Present Illness General Chief Complaint: Back Injury/Pain Stated Complaint: STRONG BACK PAIN, COULD BE HERNIA ACTING UP Time Seen by Provider: 08/30/21 20:29 Source: patient and RN notes reviewed Mode of arrival: ambulatory Limitations: no limitations History of Present Illness Provider Complaint: abdominal pain Onset (ago): 2 hour(s) Pain Consistency: intermittent Location: epigastric Radiation: back Maximum Pain Intensity: 2 Exacerbated By: + eating Associated Symptoms: + nausea and + back pain; no vomiting, no fever and no breathing difficulty 51 yo female eating pierogies and butter, sudden onset pain in epigastric region radiating to the back. Patient has had a recurrent cough over the last several days and thinks she may have exacerbated a hernia in the anterior abdomen. No vomiting. No fever and no sputum production. Patient denies any dysuria or pain in the back at this time. Home Medications Medication Instructions Recorded Confirmed Type levothyroxine 150 mcg tablet 150 mcg PO QAM 09/01/18 08/30/21 History hydrocodone 5 mg-acetaminophen 325 1 tab PO Q6H PRN #14 tab 08/31/21 Rx mg tablet Allergies Allergy/AdvReac Type Severity Reaction Status Date / Time No Known Allergies Allergy Verified 08/30/21 21:24 Past Med/Surg History Medical History (Updated 08/31/21 @ 00:34 by Maylin Prado MD) Arthritis Hypothyroidism IBS (irritable bowel syndrome) Surgical History H/O colonoscopy "09/2014 - congested and erythematous mucousa in the terminal ileum, congested and "bumpy" mucousa from the anus to the colon. Pathology negative. " History of endometrial ablation History of esophagogastroduodenoscopy (EGD) "09/2014 - normal" History of tubal ligation Hx laparoscopic cholecystectomy Hx of left inguinal hernia repair Hx of neck surgery gland removed from neck area age 8 Social History Smoking Status: Never smoker Second Hand Exposure: No; Hx Alcohol Use: No Hx Substance Use: No Preferred Language: Nepalese Communication Ability: Effective Police Officer Crime Prevention Required: No Beliefs That Will Affect Care: None Current Living Situation: Spouse Feels Safe at Home: Yes Assistive Devices: None Review of Systems See HPI for pertinent positives & negatives. and A total of 10 systems reviewed and were otherwise negative Physical Exam Vital Signs: Vital Signs - 24 hr 08/30/21 20:21 08/30/21 21:33 08/30/21 23:17 Temperature 36.7 C Temperature Source Temporal Artery Sc an Pulse Rate 79 63 Pulse Rate [Apical ] 51 L Respiratory Rate 16 18 17 Respiratory Effort / Characteristics Non-Labored Sponta neous Non-Labored Respiratory Depth Normal Normal Respiratory Patter n Regular Blood Pressure 153/86 H Blood Pressure [Ri ght Arm] 142/75 H Blood Pressure Karla n 108 Blood Pressure Karla n [Right Arm] 97 Blood Pressure Pos ition [Right Arm] Lying Pulse Oximetry 94 97 96 Oxygen Delivery Me thod Room Air Room Air Room Air Sepsis Recent Feve r Within 48 Hours No Sepsis New/Unexpla ined Change in Men sheldon Status No Sepsis Action Take n by Nursing No Action Required 08/31/21 01:00 Temperature Temperature Source Pulse Rate Pulse Rate [Apical ] 57 L Respiratory Rate 15 Respiratory Effort / Characteristics Respiratory Depth Respiratory Patter n Blood Pressure Blood Pressure [Ri ght Arm] 145/86 H Blood Pressure Karla n Blood Pressure Karla n [Right Arm] 105 Blood Pressure Pos ition [Right Arm] Lying Pulse Oximetry 97 Oxygen Delivery Me thod Room Air Sepsis Recent Feve r Within 48 Hours Sepsis New/Unexpla ined Change in Men sheldon Status Sepsis Action Take n by Nursing Physical Exam: Vital signs reviewed. General: Well-appearing 51 yo female in no significant distress. HEENT: No scleral icterus, PERRLA, neck supple. Atraumatic. Cardiovascular: Regular rate and rhythm, no extra sounds. Pulmonary: Clear to auscultation bilaterally, normal work of breathing. Abdomen: Soft, obese, mild anterior tenderness upper abdomen, nondistended, p ositive bowel sounds. Musculoskeletal: Atraumatic, no peripheral edema. Neurologic: Patient awake alert and oriented x 3 Skin: Warm, dry, no rash Course Administered Medications Discontinued Medications Hydrocodone Bitart/Acetaminophen (Lutts 5/325mg Homepack) 1 homepack PO UD ONE Stop: 08/31/21 00:35 Last Admin: 08/31/21 01:07 Dose: Not Given Documented by: [id number] Famotidine (Famotidine 20mg/5ml Iv Push) 20 mg IV ONE STA Stop: 08/30/21 23:58 Last Admin: 08/31/21 00:06 Dose: 20 mg Documented by: [id number] Ioversol (Optiray 320 125ml) 120 ml IV ONCE ONE Stop: 08/30/21 22:38 Last Admin: 08/30/21 22:38 Dose: 120 ml Documented by: [id number] Morphine Sulfate (Morphine Sulfate 4 Mg/Ml 1 Ml Carp\\Vial) 4 mg IV NOW STA Stop: 08/30/21 20:36 Last Admin: 08/30/21 23:19 Dose: Not Given Documented by: [id number] Ondansetron HCl (Ondansetron Inj 2 Mg/Ml 2 Ml Vial) 4 mg IV NOW STA Stop: 08/30/21 20:36 Last Admin: 08/30/21 23:19 Dose: Not Given Documented by: [id number] Pantoprazole Sodium (Pantoprazole 40 Mg Tab) 40 mg PO NOW STA Stop: 08/30/21 23:57 Last Admin: 08/31/21 00:06 Dose: 40 mg Documented by: [id number] Medical Decision Making Differential Diagnosis Appendicitis, diverticulitis, UTI, obstruction, mesenteric ischemia, aortic pathology, inflammatory bowel disease, renal colic, PUD, pancreatitis, biliary pathology, hernia, volvulus, constipation, as well as other pathologies. Medical Records Attestation: I reviewed the patient's medical records. Home Medications Current Medication List: was personally reviewed by me Laboratory Data Attestation: I reviewed the patient's lab results. Result diagrams: 08/30/21 21:23 08/30/21 21:23 Lab Results 08/30/21 08/30/21 08/30/21 Range/Units 21:23 21:23 21:23 WBC 12.26 H (4.8-10.8) K/uL RBC 4.72 (4.2-5.4) M/uL Hgb 14.8 (12.0-16.0) g/dL Hct 43.1 (37-47) % MCV 91.3 (80-100) fL MCH 31.4 (25-34) pg MCHC 34.3 (32-36) g/dL RDW Std Deviation 43.5 (36.4-46.3) fL RDW Coeff of Naina 13.1 (11.5-14.5) % Plt Count 261 (130-400) K/uL MPV 9.1 (7.4-10.4) fL Immature Gran % (Auto) 0.2 % Neut % (Auto) 41.3 % Lymph % (Auto) 22.6 % Mellette % (Auto) 6.2 % Eos % (Auto) 29.3 % Baso % (Auto) 0.4 % Neut # (Auto) 5.06 (1.4-6.5) K/uL Lymph # (Auto) 2.77 (1.2-3.4) K/uL Mellette # (Auto) 0.76 H (0.11-0.59) K/uL Eos # (Auto) 3.59 H (0-0.5) K/uL Baso # (Auto) 0.05 (0-0.2) K/uL Immature Gran # (Auto) 0.03 H (0.00-0.02) K/uL Sodium 137 (136-145) mmol/L Potassium 3.3 L (3.5-5.1) mmol/L Chloride 104 (98-107) mmol/L Carbon Dioxide 27 (21-32) mmol/L Anion Gap 6 (3-11) BUN 14 (6-23) mg/dl Creatinine 0.74 (0.6-1.2) mg/dl Est Cr Clr Drug Dosing 136.8 ml/min Est GFR ( Amer) 107.2 ml/min Est GFR (Non-Af Amer) 92.5 ml/min BUN/Creatinine Ratio 18.9 (10-20) Glucose 106 H (70-99(Fasting)) mg/dl Calcium 9.1 (8.5-10.1) mg/dl Total Bilirubin 0.6 (0.2-1.0) mg/dl AST 47 H (13-39) U/L ALT 30 (7-52) U/L Alkaline Phosphatase 99 (34-104) U/L Troponin I < 0.03 (0-0.04) ng/ml Total Protein 6.7 (6.0-8.3) gm/dl Albumin 4.0 (3.4-5.0) gm/dl Globulin 2.7 (2.5-4.0) gm/dl Albumin/Globulin Ratio 1.5 (0.9-2) Lipase 1330 H (11-82) U/L Urine Color Dark Yellow Urine Appearance Clear (Clear) Urine pH 5.5 (4.5-7.5) Ur Specific [place] 1.024 (1.000-1.030) Urine Protein Negative (Negative) Urine Glucose (UA) Negative (Negative) Urine Ketones Trace H (Negative) Urine Blood Negative (Negative) Urine Nitrite Negative (Negative) Urine Bilirubin Negative (Negative) Urine Urobilinogen Negative (Negative) Ur Leukocyte Esterase Negative (Negative) SARS-CoV-2, RNA, NAAT (NEGATIVE) 08/31/21 Range/Units 00:10 WBC (4.8-10.8) K/uL RBC (4.2-5.4) M/uL Hgb (12.0-16.0) g/dL Hct (37-47) % MCV (80-100) fL MCH (25-34) pg MCHC (32-36) g/dL RDW Std Deviation (36.4-46.3) fL RDW Coeff of Naina (11.5-14.5) % Plt Count (130-400) K/uL MPV (7.4-10.4) fL Immature Gran % (Auto) % Neut % (Auto) % Lymph % (Auto) % Mellette % (Auto) % Eos % (Auto) % Baso % (Auto) % Neut # (Auto) (1.4-6.5) K/uL Lymph # (Auto) (1.2-3.4) K/uL Mellette # (Auto) (0.11-0.59) K/uL Eos # (Auto) (0-0.5) K/uL Baso # (Auto) (0-0.2) K/uL Immature Gran # (Auto) (0.00-0.02) K/uL Sodium (136-145) mmol/L Potassium (3.5-5.1) mmol/L Chloride (98-107) mmol/L Carbon Dioxide (21-32) mmol/L Anion Gap (3-11) BUN (6-23) mg/dl Creatinine (0.6-1.2) mg/dl Est Cr Clr Drug Dosing ml/min Est GFR ( Amer) ml/min Est GFR (Non-Af Amer) ml/min BUN/Creatinine Ratio (10-20) Glucose (70-99(Fasting)) mg/dl Calcium (8.5-10.1) mg/dl Total Bilirubin (0.2-1.0) mg/dl AST (13-39) U/L ALT (7-52) U/L Alkaline Phosphatase (34-104) U/L Troponin I (0-0.04) ng/ml Total Protein (6.0-8.3) gm/dl Albumin (3.4-5.0) gm/dl Globulin (2.5-4.0) gm/dl Albumin/Globulin Ratio (0.9-2) Lipase (11-82) U/L Urine Color Urine Appearance (Clear) Urine pH (4.5-7.5) Ur Specific [place] (1.000-1.030) Urine Protein (Negative) Urine Glucose (UA) (Negative) Urine Ketones (Negative) Urine Blood (Negative) Urine Nitrite (Negative) Urine Bilirubin (Negative) Urine Urobilinogen (Negative) Ur Leukocyte Esterase (Negative) SARS-CoV-2, RNA, NAAT NEGATIVE (NEGATIVE) Imaging Data Radiologist's Impression: CT ABDOMEN & PELVIS With Contrast: Diffuse circumferential esophageal thickening, most likely sequela of esophagitis. Normal appendix. Small fat-containing umbilical hernia, unchanged. Surgically absent gallbladder. Stable simple cyst in the right kidney. Comparison made with 03/31/2016 CT abdomen/pelvis Radiologist: Glen Laird MD Study ready at 22:52 and initial results transmitted at 23:03 ECG Data Attestation: I personally reviewed and interpreted this ECG as follows: (Normal sinus rhythm at 63 bpm, normal ST segments, normal axis. QTC is 448. No PVC, no PAC.) Blood Pressure Blood Pressure Findings: Elevated blood pressure Blood Pressure Disposition: further management by hospitalist MDM Narrative This patient was evaluated and appeared to be in no significant distress. IV access was obtained and laboratory work was drawn. Patient was hydrated with normal saline solution, IV morphine and Zofran were ordered however the patient stated that her pain had largely resolved and declined the analgesia. CT imaging of the abdomen and pelvis was ordered and reveals diffuse ci rcumferential thickening indicative of esophagitis. Laboratory work reveals an elevated lipase of 1330 with the upper limit of normal being 84. Patient was given 20 mg of IV Pepcid and 40 mg of p.o. Protonix. Case was discussed with the hospitalist service, Dr. Walker who will evaluate the patient for admission and further management. Patient expressed understanding of the plan and agrees. Impression & Plan Pancreatitis, Esophagitis, Hernia, umbilical Discharge Plan Visit Data Chief Complaint: Back Injury/Pain Stated Complaint: STRONG BACK PAIN, COULD BE HERNIA ACTING UP ED Provider: Maylin Prado Discharge Problem: Pancreatitis, Esophagitis, Hernia, umbilical Patient Disposition: Home - Self-Care Condition: Good Discharge Instructions Corinne/Other Patient Handouts: ED GERD (Adult), ED Pancreatitis Activity Restrictions/Additional Instructions: Diagnosis: Pancreatitis, Esophagitis, Umbilical hernia Maintain a clear liquid diet x 24-48 hours. Advance the diet slowly as tolerated TO BRAT: Bananas, rice, applesauce and toast. Lutts 1 tab every 6 hours as needed for pain, do not drive on this medication. Protonix 40 mg daily (for stomach) Avoid aspirin, Aleve and ibuprofen. Minimize any alcohol, greasy or spicy foods. Follow-up with your primary care physician this week for reevaluation. He will likely require reevaluation by your auto body mechanic apprentice as well. Return to the ED for worsening symptoms or any medical concerns. Forms Stand Alone Forms: My [facility], Virtual Emergency Department, Important Visit Information Prescriptions Prescriptions: New hydrocodone-acetaminophen 5-325 mg tablet 1 tab PO Q6H PRN (Reason: pain) Qty: 14 RF: 0 No Action levothyroxine 150 mcg tablet 150 mcg PO QAM RF: 0 Referrals Referrals: Margoth Winslow DO [Primary Care Provider] -
[2021-08-31] MEDS ORDERED: SODIUM CHLORIDE 0.9% 1000ML 1,000 ML IV SCH (01:22)
--- NOTE | 2021-08-31 02:50 | History and Physical Report ---
DATE OF ADMISSION: 08/31/2021. CHIEF COMPLAINT: Back pain. HISTORY OF PRESENT ILLNESS: This is a 51-year-old female with past medical history significant for hypothyroidism, morbid obesity, lumbar degenerative disk disease, presents with history of back pain going on for last few days and also she has some mild abdominal pain. Last 2-4 days, she is also having some uneasy feeling after eating food. Denies any nausea or vomiting. No diarrhea or constipation. Normal bladder movements. No fever, no chills, no chest pain or shortness of breath, no headache, no blurred visions, no earache, no runny nose, no sore throat, no cough, no fevers. Currently, resting comfortably and hemodynamically stable. ALLERGIES: No known drug allergies. PAST MEDICAL HISTORY: As mentioned above. PAST SURGICAL HISTORY: Colonoscopy, EGDs, neck operation, laparoscopic left femoral hernia repair. MEDICATIONS: The patient is on levothyroxine 150 mcg p.o. daily. FAMILY HISTORY: Significant for paternal grandmother has arthritis and cancer, paternal grandfather, diabetes, heart disorder; mother has cancer and arthritis. SOCIAL HISTORY: , no smoking, alcohol, no drug use. REVIEW OF SYSTEMS: As per HPI. Rest of review of systems is negative. PHYSICAL EXAMINATION: GENERAL: The patient is morbidly obese, not in acute distress. VITAL SIGNS: Temperature 36.7, pulse 57, respiratory rate 15, blood pressure 145/86, oxygen 97% on room air. HEENT: Pupils equal, round and reactive to light. Oral mucosa moist. NECK: No JVD or neck masses. CARDIOVASCULAR: S1 and S2 heard. Regular rate and rhythm. No murmur, no gallop. RESPIRATORY SYSTEM: Normal AP diameter. No accessory muscle use. No wheezing, no crackles. ABDOMEN: Soft, bowel sounds present. Mild epigastric tenderness. No guarding. No rigidity, no distention. CENTRAL NERVOUS SYSTEM: Cranial nerves II-XII grossly intact, nonfocal. EXTREMITIES: No edema, no erythema. MUSCULOSKELETAL: Bilateral flank mild tenderness. LABORATORY DATA: WBC 12.2, hemoglobin 14.8, hematocrit 43.1, platelets 261. Sodium 137, potassium 3.8, chloride 104, bicarbonate 27, BUN 14, creatinine 0.7, serum glucose 106, calcium 9.1, total bilirubin 0.1, AST 47, ALT 30, alkaline phosphatase 99. Troponin I less than 0.03, lipase 1330. Urinalysis negative. SARS-CoV-2 negative. IMAGING DATA: Chest x-ray, no acute findings. IMAGING DATA: CT abdomen and pelvis preliminary report shows esophagitis. ASSESSMENT AND PLAN: This 51-year-old female presents with back pain and found to have esophagitis and possible pancreatitis. 1. Back pain. The patient has history of lumbar degenerative disk disease, we will follow the final report of the CAT scan. Pain control. 2. Esophagitis or symptoms could be from esophagitis. Place on IV Protonix b.i.d., n.p.o., fluids, pain control. Consult GI in the a.m. 3. Possible pancreatitis with elevated lipase 1300. We will follow the final report of the CAT scan, but the patient has no significant tenderness on palpation. We will keep her n.p.o., IV Ringer's lactate 200 mL per hour, IV Dilaudid p.r.n., await GI input. 4. Morbid obesity: Needs counseling. 5. Deep venous thrombosis prophylaxis: Lovenox. DISPOSITION: Admit to medical floor. PT/OT prior to discharge. Social service to help with discharge planning. Job ID: [id number] [facility]
[2021-08-31] MEDS ORDERED: HYDROmorphone INJ 0.5 MG/0.5 ML SYR IV PRN (03:16)
[2021-08-31] MEDS ORDERED: ONDANSETRON INJ 2 MG/ML 2 ML VIAL IV PRN (03:16)
[2021-08-31] MEDS ORDERED: POTASSIUM CHLORIDE CRTAB 20 MEQ TABCR PO STA (03:16)
[2021-08-31] MEDS ORDERED: ACETAMINOPHEN 325 MG TAB PO PRN (03:16)
[2021-08-31] MEDS: LACTATED RINGER'S 1,000 ML IV SCH ×4 (03:31→18:29)
[2021-08-31] MEDS: LEVOTHYROXINE SODIUM 150 MCG TABLET PO SCH (06:21)
[2021-08-31] MEDS: ENOXAPARIN INJ 40 MG/0.4 ML SYR SQ SCH ×2 (06:22→18:29)
[2021-08-31 06:35] LABS: Basophils # (auto) 0.04 K/uL (0-0.2); Basophils % (auto) 0.4 %; Eosinophils # (auto) 3.19 K/uL (0-0.5); Eosinophils % (auto) 34.4 %; Hematocrit (blood only) 39.7 % (37-47); Hemoglobin 13.4 g/dL (12.0-16.0); Immature Granulocytes # (auto) 0.01 K/uL (0.00-0.02); Immature Granulocytes % (auto) 0.1 %; Lymphocytes # (auto) 2.33 K/uL (1.2-3.4); Lymphocytes % (auto) 25.1 %; Mean Corpuscular Hemoglobin 30.7 pg (25-34); Mean Corpuscular Hgb Conc 33.8 g/dL (32-36); Mean Corpuscular Volume 91.1 fL (80-100); Mean Platelet Volume 9.3 fL (7.4-10.4); Monocytes # (auto) 0.49 K/uL (0.11-0.59); Monocytes % (auto) 5.3 %; Neutrophils # (auto) 3.22 K/uL (1.4-6.5); Neutrophils % (auto) 34.7 %; Platelet Count 235 K/uL (130-400); RDW Coefficient of Variation 13.2 % (11.5-14.5); Red Blood Count 4.36 M/uL (4.2-5.4); White Blood Count 9.28 K/uL (4.8-10.8)
[2021-08-31 07:06] LABS: BUN Creatinine Ratio 15.7 (10-20); Calcium 8.2 mg/dl (8.5-10.1); Creatinine Clr Calc Pharmacy 168.8 ml/min; Est GFR (African American) 114.6 ml/min; Est GFR (Non-African American) 98.9 ml/min; Magnesium 1.8 mg/dl (1.7-2.4); Potassium 3.6 mmol/L (3.5-5.1)
--- NOTE | 2021-08-31 07:46 | CT Scan Report ---
CT OF THE ABDOMEN AND PELVIS WITH CONTRAST CLINICAL HISTORY: Epigastric abd pain, through to back, s/p cholecystectomy. COMPARISON STUDY: CT of the abdomen and pelvis March 31, 2016. KUB April 05, 2018. TECHNIQUE: Following IV administration of 120 mL of Optiray, axial images of the abdomen and pelvis w ere obtained from the lung bases to the proximal femurs. Images were reviewed in the axial, sagittal, and coronal planes. IV contrast was administered without complication. Automated exposure control w as utilized for the study. A dose lowering technique was utilized adhering to the principles of HERNÁN Browne. CT DOSE: 1769.09 mGy.cm FINDINGS: A small hiatal hernia is noted. There is moderate circumferential wall thickening of the di stal esophagus. No pneumatosis, free air or portal venous gas is present. Slight biliary ductal dilat ation is likely related to cholecystectomy. Mild splenomegaly is unchanged. The adrenal glands and le ft kidney are unremarkable. There is a 2.1 cm right renal cyst. There is no hydronephrosis. No pancre atic ductal dilatation is noted. There is subtle stranding adjacent to the second portion the duodenu m with possible wall thickening of the duodenum. There is no evidence for a bowel obstruction. The ap pendix is normal. Left inguinal hernia repair is noted. A ventral hernia repair is noted. Recurrent v entral hernia is present. There are tiny nodules along the suspected ventral hernia mesh. There is no ascites. No acute fracture or suspicious lesion is identified within visualized skeletal structures. Major vasculature is patent. IMPRESSION: 1. Subtle stranding adjacent to the second portion the duodenum with possible wall thickening. This c ould reflect duodenitis or mild acute pancreatitis. This finding will be called/faxed to the ordering provider at time of dictation. 2. Wall thickening of the distal esophagus which favors esophagitis. Small hiatal hernia. 3. Status post central hernia repair with mesh. Recurrent ventral hernia. Multiple tiny nodules adjac ent to the mesh are probably postsurgical however a follow-up CT of the abdomen and pelvis in 6 month s to ensure stability is recommended. 4. No bowel obstruction. No bowel wall thickening. ACT 112: Negative or not required by law. Electronically signed by: Mynor Erwin M.D. 08/31/2021 7:45 AM
--- NOTE | 2021-08-31 08:09 | XRay Report ---
XR chest 1V portable CLINICAL HISTORY: Abdominal pain, back pain COMPARISON STUDY: Chest radiograph October 19, 2020. Chest CT September 01, 2018. FINDINGS: Lung volumes are normal. Lungs are clear. There is no pneumothorax or pleural effusion. Car diac size is stable. Mediastinal contours are normal. There is no evidence for pulmonary edema. IMPRESSION: No acute cardiopulmonary findings. ACT 112: Negative or not required by law. Electronically signed by: Mynor Erwin M.D. 08/31/2021 8:07 AM
[2021-08-31] MEDS: PANTOprazole 40 MG in SYRINGE 0 ML IV SCH ×2 (08:40→20:17)
--- NOTE | 2021-08-31 10:32 | Electrocardiogram Report ---
Test Reason : Blood Pressure : / mmHG Vent. Rate : 071 BPM Atrial Rate : 071 BPM P-R Int : 162 ms QRS Dur : 112 ms QT Int : 408 ms P-R-T Axes : 047 -34 040 degrees QTc Int : 443 ms Normal sinus rhythm Left axis deviation Poor R wave progression, consider anterior DE vs. lead placement vs. LVH Abnormal ECG When compared with ECG of 01-SEP-2018 19:06, Nonspecific T wave abnormality has replaced inverted T waves in Inferior leads Confirmed by Nadeem Villafana ([id number]) on 08/31/2021 10:31:40 AM Referred By: REFERRED SELF Confirmed By:Jerome Villafana
--- NOTE | 2021-08-31 11:41 | Gastrointestinal Consultation ---
Date of Consultation August 31, 2021 Assessment & Plan (1) Pancreatitis: Unsure of etiology. Agree with LR at 200/h. Begin clear liquids. Recommend outpatient EGD and EUS in approximately 6 weeks. Of note, CT scan suggested lower esophageal esophagitis, this is more likely related pancreatitis as she has not had typical symptoms of epigastric pain or reflux. However, will get an EGD in approximately 6 weeks. Our office will call her to arrange the EGD EUS. Supervising Physician Co-Signing Physician Notes Attending attestation I have seen, examined this patient, and agree with the findings and above by our mid-level provider MARIANA Charles, with the following additions: No signs of pain or complications, no etiology Check NOMI and IgG4, TAGS Outpt EUS in 4-6 wks History of Present Illness Reason for Consultation: Pancreatits Requesting Physician: Dr. Walker Attending Physician: Con Olivarez MD History of Present Illness Mckenzie Dunbar is a 51-year-old female patient of Dr. Margoth Winslow with a history of hypothyroidism and polycystic ovaries. She has been having some diffuse abdominal discomfort and gassiness for about a month. She also has a history of ventral hernia which she believes has been more prominent in the last month. Yesterday, she experienced the sudden onset of bilateral mid back pain near the base of both shoulder blades. She presented to the emergency department. She had relief of the pain when she arrived in the parking lot prior to presenting in the ED. She has not had pain since then. On arrival, CT scan with suggestion of mild pancreatitis as some stranding near the duodenum but there was also distal esophageal thickening. Lipase was elevated at 1330 and much improved today at 137. LFTs have been normal CT shows that she has borderline biliary ductal dilation but is appropriate for her postcholecystectomy state. She is hemodynamically stable with a normal white blood cell count and creatinine. She is receiving LR at 200/hr. hemoglobin was 14.8 on arrival last evening and is 13.4 this morning. She does not have leukocytosis; creatinine is normal. She has been NPO. No nausea/vomiting. She has had a cough for about a month. Regarding the cause of the pancreatitis, she is status post distant cholecystectomy and does not seem to have had symptoms typical of biliary colic recently. She has not had any jaundice. She does not have a family history of pancreatitis. She denies any history of increased alcohol use and she has never been a smoker. Denies any new medications or any frequent use of [id number] medications or supplements. Allergies Allergy/AdvReac Type Severity Reaction Status Date / Time No Known Allergies Allergy Verified 08/30/21 21:24 Home Medications Medication Instructions Recorded Confirmed Type levothyroxine 150 mcg tablet 150 mcg PO QAM 09/01/18 08/30/21 History hydrocodone 5 mg-acetaminophen 325 1 tab PO Q6H PRN #14 tab 08/31/21 Rx mg tablet Patient History Medical History (Updated 08/31/21 @ 00:34 by Maylin Prado MD) Arthritis Hypothyroidism IBS (irritable bowel syndrome) Surgical History H/O colonoscopy "09/2014 - congested and erythematous mucousa in the terminal ileum, congested and "bumpy" mucousa from the anus to the colon. Pathology negative. " History of endometrial ablation History of esophagogastroduodenoscopy (EGD) "09/2014 - normal" History of tubal ligation Hx laparoscopic cholecystectomy Hx of left inguinal hernia repair Hx of neck surgery gland removed from neck area age 8 Social History Smoking Status: Never smoker Second Hand Exposure: No; Hx Alcohol Use: No Hx Substance Use: No Preferred Language: Croatian Communication Ability: Effective Manager Nursing Required: No Beliefs That Will Affect Care: None Current Living Situation: Spouse Other Information That Helps Us Care for You: No Feels Safe at Home: Yes Safety Concerns: Feels Safe At This Time Assistive Devices: None Review of Systems Review of Systems: ROS: Gen: Denies weakness, fevers, weight loss Eyes: No eye redness, or pain, no recent vision changes Resp: No SOB, no cough Cardio: No palpitations/irregular beats, no chest pain GI: Various mild GI issues, see HPI. : Denies pain on urination Skin: No jaundice, itching or new rashes Neuro: denies any abnormalities Total of 12 systems reviewed, all others negative. Physical Exam Constitutional: well developed, + obese and cooperative Eyes: PERRL, conjunctivae normal, anicteric sclerae Respiratory: normal respiratory effort, lungs clear to auscultation Cardiovascular: RRR, no murmur, no edema Gastrointestinal (Abdomen): normal bowel sounds, soft, nontender, no hepatosplenomegaly Skin: no rashes, warm and dry normal turgor Neurologic: PERRL, EOMI, accommodation nl, no face palsy, no dysarthria awake; not confused Psychiatric: Orientation: alert, oriented x 3 and cooperative Results & Data ([facility]) Vital Signs (Past 12 Hours) Vital Signs Temp Pulse Pulse Resp BP BP Pulse Ox 08/31/21 08:15 36.5 C 52 L 14 145/76 H 94 08/31/21 03:00 36.4 C L 95 H 16 156/79 H 95 08/31/21 02:55 53 L 13 131/73 92 08/31/21 01:00 57 L 15 145/86 H 97 Laboratory Results WBC 9.28, Hb 13.4, HCT 39.2, platelets 235, NA 139, K3.6, CL 108, CO2 27, BUN 11, CR 0.7, glucose 90. T bili 0.6, AST 47, ALT 30, AP 99, lipase 1330 yesterday today 137. Diagnostic Findings CTAP 08/31/21: 1. Subtle stranding adjacent to the second portion the duodenum with possible wall thickening. This could reflect duodenitis or mild acute pancreatitis. This finding will be called/faxed to the ordering provider at time of dictation. 2. Wall thickening of the distal esophagus which favors esophagitis. Small hi atal hernia. 3. Status post central hernia repair with mesh. Recurrent ventral hernia. Multiple tiny nodules adjacent to the mesh are probably postsurgical however a follow-up CT of the abdomen and pelvis in 6 months to ensure stability is recommended. 4. No bowel obstruction. No bowel wall thickening. CXR 08/31/21: No acute cardiopulmonary findings. Medications Administered LR at 200/hr No narcotic (before or after arrival) (1) Pancreatitis Acute pancreatitis complication: no infection or necrosis Chronicity: acute Pancreatitis type: unspecified pancreatitis type Qualified Code(s): K85.90 - Acute pancreatitis without necrosis or infection, unspecified
--- NOTE | 2021-08-31 17:22 | Hospitalist Progress Note ---
Date of Service August 31, 2021 Assessment & Plan (1) Acute pancreatitis: Plan: ASSESSMENT AND PLAN: This 51-year-old female presents with back pain and found to have esophagitis and possible pancreatitis. ACUTE PANCREATITIS clinically improving Lipase down from 1300 to 137 GI consulted outpatient EUS clear liquids IV fluids monitor closely POSSIBLE DUODENITIS, ESOPHAGITIS Protonix ordered DISPOSITION: anticipate d/c home tomorrow when medically stable plan of care discussed with patient in detail and at length all questions answered she is understanding, agreeable, comfortable with the plan of care Job ID: [id number] Admission and Anticipated Discharge Date Admission Date: August 31, 2021 Subjective ff up for acute pancreatitis, etc seen resting in bed, comfortable states abdominal and back pain mostly resolved no chest pain, dyspnea, palpitations, dizziness no nausea, fever/chills states she feels improved overall no other symptoms Review of Systems Review of Systems: all noted and negative except for above Physical Exam Physical Exam: General- oriented x 3, not in distress, speaks in sentences wit h no effort or accessory muscle use Head- atraumatic Eyes- PERRL, EOMI, anicteric ENT- oropharynx clear Neck- supple, no JVD, no adenopathy, no thyromegaly; carotids +2/2, no bruits appreciated Lungs- clear to auscultation bilaterally, no rales/wheezes Heart- normal rate, regular rhythm; no murmur, no gallop, no rub appreciated Abdomen- normal bowel sounds, nondistended, soft, nontender, no masses or hepatosplenomegaly Extremities- no pretibial edema, no calf tenderness; peripheral pulses intact Neuro- alert, oriented x 3; CN 2-12 grossly intact; motor 5/5 bilaterally;sensation 100% on all extremities; no other gross focal neurologic deficits Skin- warm & dry Results & Data Results & Data ([facility]) Vital Signs (Past 12 Hours) Vital Signs Temp Pulse Resp BP Pulse Ox 08/31/21 15:14 36.5 C 52 L 18 149/80 H 95 08/31/21 08:15 36.5 C 52 L 14 145/76 H 94 all noted and reviewed including below
[2021-09-01] MEDS: LACTATED RINGER'S 1,000 ML IV SCH ×3 (04:00→23:27)
[2021-09-01] MEDS: ENOXAPARIN INJ 40 MG/0.4 ML SYR SQ SCH ×2 (05:12→17:43)
[2021-09-01] MEDS: LEVOTHYROXINE SODIUM 150 MCG TABLET PO SCH (05:12)
[2021-09-01 08:20] LABS: Albumin Globulin Ratio 1.4 (0.9-2); Albumin Level 3.5 gm/dl (3.4-5.0); BUN Creatinine Ratio 9.1 (10-20); Bilirubin,Total 0.8 mg/dl (0.2-1.0); Calcium 8.5 mg/dl (8.5-10.1); Creatinine Clr Calc Pharmacy 214.9 ml/min; Est GFR (African American) 124.1 ml/min; Est GFR (Non-African American) 107.1 ml/min; Globulin 2.5 gm/dl (2.5-4.0); Potassium 3.6 mmol/L (3.5-5.1)
[2021-09-01] MEDS: PANTOprazole 40 MG in SYRINGE 0 ML IV SCH ×2 (08:28→21:03)
[2021-09-01 13:02] LABS: Anti Nuclear Antibody Screen POSITIVE (NEGATIVE)
[2021-09-01] MEDS ORDERED: ALBUTEROL HFA 8 GM INHALER INH PRN (13:42)
--- NOTE | 2021-09-01 14:11 | XRay Report ---
XR chest 1V portable HISTORY: wheezing COMPARISON: Chest 08/30/2021. FINDINGS: There are low lung volumes. The cardiac silhouette remains mildly enlarged. The lungs are c lear. No pleural effusions. No pneumothorax. No new focal lung consolidations to suggest pneumonia. N o evidence for pulmonary edema. IMPRESSION: 1. Stable mild cardiomegaly. 2. Otherwise, no acute process within the chest. ACT 112: Negative or not required by law. Electronically signed by: Octavio Cardoza M.D. 09/01/2021 2:10 PM
--- NOTE | 2021-09-01 14:20 | Gastroenterology Progress Note ---
Date of Service September 01, 2021 Assessment & Plan (1) Pancreatitis: Plan: Low fat diet. Outpatient EGD and EUS in approximately 6 weeks. Our office will contact her to arrange. Of note, CT scan suggested lower esophageal esophagitis, this is more likely related pancreatitis as she has not had typical symptoms of epigastric pain or reflux. However, will get an EGD in approximately 6 weeks. Our office will call her to arrange the EGD EUS. No GI contraindication to DC. Admission and Anticipated Discharge Date Admission Date: August 31, 2021 Supervising Physician Co-Signing Physician Notes Attending attestation I have seen, examined this patient, and agree with the findings and above by our mid-level provider MARIANA Charles, with the following additions: - abdominal exam much improved - outpt EUS in 4-6 wks Subjective Presented to [facility] ED on 08/30 for sudden back pain. CT and elevated lipase consistent with acute, uncomplicated pancreatitis. Pain nearly resolved (just a little upper abd discomfort briefly this morning). Tolerated clear liquids po for breakfast and soft foods for lunch. Review of Systems Review of Systems: ROS: Gen: Denies weakness, fevers, weight loss Eyes: No eye redness, or pain, no recent vision changes Resp: No SOB, no cough Cardio: No palpitations/irregular beats, no chest pain GI: Various mild GI issues, see HPI. : Denies pain on urination Skin: No jaundice, itching or new rashes Neuro: denies any abnormalities Total of 12 systems reviewed, all others negative. Physical Exam Constitutional: well developed, + obese and cooperative Eyes: PERRL, conjunctivae normal, anicteric sclerae Respiratory: normal respiratory effort, lungs clear to auscultation Cardiovascular: RRR, no murmur, no edema Gastrointestinal (Abdomen): normal bowel sounds, soft, nontender, no hepatosplenomegaly Skin: no rashes, warm and dry normal turgor Neurologic: PERRL, EOMI, accommodation nl, no face palsy, no dysarthria awake; not confused Psychiatric: Orientation: alert, oriented x 3 and cooperative Results & Data ([facility]) Vital Signs (Past 12 Hours) Vital Signs Temp Pulse Resp BP Pulse Ox 09/01/21 07:28 36.9 C 57 L 16 147/76 H 95 Laboratory Results Sodium 139, K 3.6, Cl 109, CO2 27, BUN 5, CR 0.55, glucose 93, lipase 44. Diagnostic Findings CTAP w IV on 08/31/21: 1. Subtle stranding adjacent to the second portion the duodenum with possible wall thickening. This could reflect duodenitis or mild acute pancreatitis. This finding will be called/faxed to the ordering provider at time of dictation. 2. Wall thickening of the distal esophagus which favors esophagitis. Small hia sheldon hernia. 3. Status post central hernia repair with mesh. Recurrent ventral hernia. Multiple tiny nodules adjacent to the mesh are probably postsurgical however a follow-up CT of the abdomen and pelvis in 6 months to ensure stability is recommended. 4. No bowel obstruction. No bowel wall thickening. (1) Pancreatitis Acute pancreatitis complication: no infection or necrosis Chronicity: acute Pancreatitis type: unspecified pancreatitis type Qualified Code(s): K85.90 - Acute pancreatitis without necrosis or infection, unspecified
[2021-09-01] MEDS ORDERED: ALBUT/IPRATROP 3MG/0.5MG NEB 3 ML VIAL NEB PRN (14:43)
--- NOTE | 2021-09-01 14:55 | Hospitalist Progress Note ---
Date of Service September 01, 2021 Assessment & Plan (1) Acute pancreatitis: Plan: ASSESSMENT AND PLAN: This 51-year-old female presents with back pain and found to have esophagitis and possible pancreatitis. ACUTE PANCREATITIS Continues to improve however developed some mild increasing epigastric and back discomfort after diet was advanced to regular today. Will continue to observe for an additional day. Lipase 1300 --> 137 --> 44 Continue IVF GI consulted, recommends a low-fat diet and outpatient EGD and EUS in approximately 6 weeks POSSIBLE DUODENITIS, ESOPHAGITIS Protonix ordered Outpatient EGD in approximately 6 weeks ACUTE BRONCHITIS Patient reports productive cough and wheezing for the past 4 to 6 weeks Start a short course of prednisone, doxycycline, nebulizers CXR clear, patient on room air DISPO: Likely discharge home tomorrow Plan: Attending Addendum: care coordinated with MARIANA Roblero please refer to her notes for full details, I agree with her notes patient seen and examined, records reviewed by myself as well on exam, patient seen resting in bed, comfortable (+) coughing spells, productive of yellow sputum (+) mild epigastric discomfort after lunch no other symptoms VS noted and reviewed oriented x 3 , not in distress, speaks in sentences with no effort nor accessory muscle use normal rate, regular rhythm, no murmurs (+) rhonchi BL non distended, soft, nontender no bipedal edema, erythema, warmth no neuro deficits Lipase: normal CXR: no infiltrates ASSESSMENT AND PLAN ACUTE PANCREATITIS resolving continue to monitor for now ACUTE BRONCHITIS Doxycycline, Prednisone taper, Nebs, Mucinex other diagnoses and plan of care as per MARIANA Roblero's notes Con Olivarez MD Admission and Anticipated Discharge Date Admission Date: August 31, 2021 Subjective Patient seen and examined. Follow-up for pancreatitis, bronchitis. Patient's diet advanced to regular for lunch. Patient reports some increased epigastric and back pain after eating. No nausea, vomiting, diarrhea. Has a cough productive for yellow sputum. Reports this has been ongoing for the past 4 to 6 weeks. Some mild wheezing on exam. No chest pain and denies shortness of breath. Review of Systems Review of Systems: ROS per HPI, all other systems reviewed and negative Physical Exam Constitutional: WD/WN, vitals as above no acute distress Respiratory: normal respiratory effort; no respiratory distress Auscultatio n: + wheezes (Scattered, expiratory) Cardiovascular: Rate/Rhythm: regular rate and regular rhythm Vessels: normal peripheral pulses Extremities: no edema Gastrointestinal (Abdomen): Inspection/Auscultation: abdomen not distended Percussion/Palpation: + abdomen tender (Mild epigastric tenderness) and abdomen soft Skin: no rashes, warm and dry Neurologic: no focal motor deficits Psychiatric: A+Ox3, euthymic affect Results & Data Results & Data ([facility]) Vital Signs (Past 12 Hours) Vital Signs Temp Pulse Resp BP Pulse Ox 09/01/21 07:28 36.9 C 57 L 16 147/76 H 95 Laboratory Results [facility] 09/01/21 07:50 Sodium 139 Potassium 3.6 Chloride 109 H Carbon Dioxide 27 BUN 5 L Creatinine 0.55 L Glucose 93 Calcium 8.5 Liver Function 09/01/21 Range/Units 07:50 Total Bilirubin 0.8 (0.2-1.0) mg/dl AST 29 (13-39) U/L ALT 32 (7-52) U/L Alkaline Phosphatase 87 (34-104) U/L Albumin 3.5 (3.4-5.0) gm/dl
[2021-09-01] MEDS: DOXYCYCLINE HYCLATE 100 MG CAP PO SCH ×2 (15:01→21:02)
[2021-09-01] MEDS: predniSONE 20 MG TAB PO SCH (15:01)
[2021-09-01] MEDS: guaiFENesin 600 MG TABCR PO SCH (17:43)
[2021-09-02] MEDS: LACTATED RINGER'S 1,000 ML IV SCH (06:23)
[2021-09-02] MEDS: ENOXAPARIN INJ 40 MG/0.4 ML SYR SQ SCH (06:24)
[2021-09-02] MEDS: LEVOTHYROXINE SODIUM 150 MCG TABLET PO SCH (06:24)
[2021-09-02] MEDS: predniSONE 20 MG TAB PO SCH (09:44)
[2021-09-02] MEDS: PANTOprazole 40 MG in SYRINGE 0 ML IV SCH (09:44)
[2021-09-02] MEDS: guaiFENesin 600 MG TABCR PO SCH (09:44)
[2021-09-02] MEDS: DOXYCYCLINE HYCLATE 100 MG CAP PO SCH (09:44)
[2021-09-02 12:41] LABS: ANA Pattern Cytoplasmic
--- NOTE | 2021-09-02 16:29 | Discharge Summary ---
Date of Service September 02, 2021 Admission HPI Per Admitting Provider This is a 51-year-old female with past medical history significant for hypothyroidism, morbid obesity, lumbar degenerative disk disease, presents with history of back pain going on for last few days and also she has some mild abdominal pain. Last 2-4 days, she is also having some uneasy feeling after eating food. Denies any nausea or vomiting. No diarrhea or constipation. Normal bladder movements. No fever, no chills, no chest pain or shortness of breath, no headache, no blurred visions, no earache, no runny nose, no sore throat, no cough, no fevers. Currently, resting comfortably and hemodynamically stable. Admission Exam Per Admitting Provider GENERAL: The patient is morbidly obese, not in acute distress. VITAL SIGNS: Temperature 36.7, pulse 57, respiratory rate 15, blood pressure 145/86, oxygen 97% on room air. HEENT: Pupils equal, round and reactive to light. Oral mucosa moist. NECK: No JVD or neck masses. CARDIOVASCULAR: S1 and S2 heard. Regular rate and rhythm. No murmur, no gallop. RESPIRATORY SYSTEM: Normal AP diameter. No accessory muscle use. No wheezing, no crackles. ABDOMEN: Soft, bowel sounds present. Mild epigastric tenderness. No guarding. No rigidity, no distention. CENTRAL NERVOUS SYSTEM: Cranial nerves II-XII grossly intact, nonfocal. EXTREMITIES: No edema, no erythema. MUSCULOSKELETAL: Bilateral flank mild tenderness. Principal Diagnosis Pancreatitis Discharge Exam Constitutional WD/WN, vitals as above no acute distress Respiratory normal respiratory effort, lungs clear to auscultation Cardiovascular Rate/Rhythm: regular rate and regular rhythm Vessels: normal peripheral pulses Extremities: no edema Gastrointestinal (Abdomen) Percussion/Palpation: abdomen soft; abdomen nontender Skin no rashes, warm and dry Neurologic no focal motor deficits Psychiatric A+Ox3, euthymic affect Discharge Data Allergies Allergy/AdvReac Type Severity Reaction Status Date / Time No Known Allergies Allergy Verified 08/30/21 21:24 Consultations 08/31/21 08:00 Consult Gastroenterology Routine Ordered Studies Laboratory Results WBC 9.28 K/uL (4.8-10.8) 08/31/21 06:21 RBC 4.36 M/uL (4.2-5.4) 08/31/21 06:21 Hgb 13.4 g/dL (12.0-16.0) 08/31/21 06:21 Hct 39.7 % (37-47) 08/31/21 06:21 MCV 91.1 fL (80-100) 08/31/21 06:21 MCH 30.7 pg (25-34) 08/31/21 06:21 MCHC 33.8 g/dL (32-36) 08/31/21 06:21 RDW Std Deviation 44.0 fL (36.4-46.3) 08/31/21 06:21 RDW Coeff of Naina 13.2 % (11.5-14.5) 08/31/21 06:21 Plt Count 235 K/uL (130-400) 08/31/21 06:21 MPV 9.3 fL (7.4-10.4) 08/31/21 06:21 Immature Gran % (Auto) 0.1 % 08/31/21 06:21 Neut % (Auto) 34.7 % 08/31/21 06:21 Lymph % (Auto) 25.1 % 08/31/21 06:21 [place] % (Auto) 5.3 % 08/31/21 06:21 Eos % (Auto) 34.4 % 08/31/21 06:21 Baso % (Auto) 0.4 % 08/31/21 06:21 Neut # (Auto) 3.22 K/uL (1.4-6.5) 08/31/21 06:21 Lymph # (Auto) 2.33 K/uL (1.2-3.4) 08/31/21 06:21 [place] # (Auto) 0.49 K/uL (0.11-0.59) 08/31/21 06:21 Eos # (Auto) 3.19 K/uL (0-0.5) H 08/31/21 06:21 Baso # (Auto) 0.04 K/uL (0-0.2) 08/31/21 06:21 Immature Gran # (Auto) 0.01 K/uL (0.00-0.02) 08/31/21 06:21 Sodium 139 mmol/L (136-145) 09/01/21 07:50 Potassium 3.6 mmol/L (3.5-5.1) 09/01/21 07:50 Chloride 109 mmol/L (98-107) H 09/01/21 07:50 Carbon Dioxide 27 mmol/L (21-32) 09/01/21 07:50 Anion Gap 3 (3-11) 09/01/21 07:50 BUN 5 mg/dl (6-23) L 09/01/21 07:50 Creatinine 0.55 mg/dl (0.6-1.2) L 09/01/21 07:50 Est Cr Clr Drug Dosing 214.9 ml/min 09/01/21 07:50 Est GFR ( Amer) 124.1 ml/min 09/01/21 07:50 Est GFR (Non-Af Amer) 107.1 ml/min 09/01/21 07:50 BUN/Creatinine Ratio 9.1 (10-20) L 09/01/21 07:50 Glucose 93 mg/dl (70-99(Fasting)) 09/01/21 07:50 Calcium 8.5 mg/dl (8.5-10.1) 09/01/21 07:50 Magnesium 1.8 mg/dl (1.7-2.4) 08/31/21 06:21 Total Bilirubin 0.8 mg/dl (0.2-1.0) 09/01/21 07:50 AST 29 U/L (13-39) 09/01/21 07:50 ALT 32 U/L (7-52) 09/01/21 07:50 Alkaline Phosphatase 87 U/L (34-104) 09/01/21 07:50 Troponin I < 0.03 ng/ml (0-0.04) 08/30/21: Total Protein 6.0 gm/dl (6.0-8.3) 09/01/21 07:50 Albumin 3.5 gm/dl (3.4-5.0) 09/01/21 07:50 Globulin 2.5 gm/dl (2.5-4.0) 09/01/21 07:50 Albumin/Globulin Ratio 1.4 (0.9-2) 09/01/21 07:50 Lipase 44 U/L (11-82) 09/01/21 07:50 Urine Color Dark Yellow 08/30/21 21: Urine Appearance Clear (Clear) 08/30/21 21: Urine pH 5.5 (4.5-7.5) 08/30/21 21:23 Ur Specific [place] 1.024 (1.000-1.030) 08/30/21 21:23 Urine Protein Negative (Negative) 08/30/21 21: Urine Glucose (UA) Negative (Negative) 08/30/21 21: Urine Ketones Trace (Negative) H 08/30/21 21:23 Urine Blood Negative (Negative) 08/30/21 21: Urine Nitrite Negative (Negative) 08/30/21 21: Urine Bilirubin Negative (Negative) 08/30/21 21: Urine Urobilinogen Negative (Negative) 08/30/21 21: Ur Leukocyte Esterase Negative (Negative) 08/30/21: NOMI Screen POSITIVE (NEGATIVE) A 08/30/21: NOMI Titer 1:80 titer H 08/30/21: NOMI Pattern Cytoplasmic A 08/30/21 21: SARS-CoV-2, RNA, NAAT NEGATIVE (NEGATIVE) 08/31/21 00:10 Impressions Abdomen/Pelvis CT 08/30/21 21:56 CT OF THE ABDOMEN AND PELVIS WITH CONTRAST CLINICAL HISTORY: Epigastric abd pain, through to back, s/p cholecystectomy. COMPARISON STUDY: CT of the abdomen and pelvis March 31, 2016. KUB April 05, 2018. TECHNIQUE: Following IV administration of 120 mL of Optiray, axial images of the abdomen and pelvis were obtained from the lung bases to the proximal femurs. Images were reviewed in the axial, sagittal, and coronal planes. IV contrast was administered without complication. Automated exposure control was utilized for the study. A dose lowering technique was utilized adhering to the principles of ALARA. CT DOSE: 1769.09 mGy.cm FINDINGS: A small hiatal hernia is noted. There is moderate circumferential wall thickening of the distal esophagus. No pneumatosis, free air or portal venous gas is present. Slight biliary ductal dilatation is likely related to cholecystectomy. Mild splenomegaly is unchanged. The adrenal glands and left kidney are unremarkable. There is a 2.1 cm right renal cyst. There is no hydronephrosis. No pancreatic ductal dilatation is noted. There is subtle stranding adjacent to the second portion the duodenum with possible wall thi ckening of the duodenum. There is no evidence for a bowel obstruction. The appendix is normal. Left inguinal hernia repair is noted. A ventral hernia repair is noted. Recurrent ventral hernia is present. There are tiny nodules along the suspected ventral hernia mesh. There is no ascites. No acute fracture or suspicious lesion is identified within visualized skeletal structures. Major vasculature is patent. IMPRESSION: 1. Subtle stranding adjacent to the second portion the duodenum with possible wall thickening. This could reflect duodenitis or mild acute pancreatitis. This finding will be called/faxed to the ordering provider at time of dictation. 2. Wall thickening of the distal esophagus which favors esophagitis. Small hiatal hernia. 3. Status post central hernia repair with mesh. Recurrent ventral hernia. Multiple tiny nodules adjacent to the mesh are probably postsurgical however a follow-up CT of the abdomen and pelvis in 6 months to ensure stability is recommended. 4. No bowel obstruction. No bowel wall thickening. ACT 112: Negative or not required by law. Electronically signed by: Mynor Erwin M.D. 08/31/2021 7:45 AM Chest X-Ray 09/01/21 11:31 XR chest 1V portable HISTORY: wheezing COMPARISON: Chest 08/30/2021. FINDINGS: There are low lung volumes. The cardiac silhouette remains mildly enlarged. The lungs are clear. No pleural effusions. No pneumothorax. No new focal lung consolidations to suggest pneumonia. No evidence for pulmonary edema. IMPRESSION: 1. Stable mild cardiomegaly. 2. Otherwise, no acute process within the chest. ACT 112: Negative or not required by law. Electronically signed by: Octavio Cardoza M.D. 09/01/2021 2:10 PM Hospital Course (1) Acute pancreatitis: This is a 51-year-old female with past medical history significant for hypothyroidism, morbid obesity, lumbar degenerative disk disease, who presented with history of back pain going on for last few days and also some mild abdominal pain. CT ABD/pelvis on admission showed signs of duodenitis versus mild pancreatitis. Initial lipase 1300. No gallstones were noted and patient denies alcohol use and new medications. Patient treated with bowel rest, IVF, pain and nausea control. Patient symptoms improved and was tolerating a regular diet by the day of discharge. Lipase improved to 44. GI was consulted who recommends a low-fat diet and outpatient EGD and EUS in approximately 6 weeks Patient was also started on PPI twice daily. CT ABD/pelvis also showed multiple tiny nodules adjacent to hernia repair mesh and are probably postsurgical however a follow-up CT of the abdomen and pelvis in 6 months to ensure stability is recommended. Patient also reported productive cough and wheezing for the past 4 to 6 weeks. Patient was started on a short course of prednisone and doxycycline. CXR was clear and patient was saturating well on room air. On the day of discharge, patient was tolerating a regular diet and reports improvement in respiratory symptoms since initiation of prednisone to doxycycline. She is hemodynamically stable and stable for discharge home. Total Time Total Time Spent Total Time Spent (In Minutes): 35 Discharge Plan Discharge Items Patient Disposition: Home - Self-Care Reason For Visit: Back Pain, Abdominal Pain Discharge Diagnosis: Pancreatitis Condition on Discharge: Good Activity: As commented below Activity Comment: as tolerated, you may return to work on 09/07/21 Non-emergency contact: Primary Care Provider Call non-emergency contact if: you have any medication questions, your symptoms worsen, your pain is not controlled and you have a fever Follow-up/Referrals: [facility] [Other] ([facility] will be calling you to schedule an appointment. ) Margoth Winslow DO [Primary Care Provider] - 09/09/21 1:40 pm (Date & Time 09/09/2021 1:40 PM Provider Margoth Winslow DO Department [facility] ) Diet: Low Fat Addtl Attending Provider Instructions: You came to the hospital for evaluation of back and abdominal pain. You were found to have pancreatitis (inflammation of the pancreas) and possible duodenitis/esophagitis (inflammation/irritation of the stomach and esophagus). You were treated with IV fluids and bowel rest. You were also started on a medicine that will help with the stomach irritation - pantoprazole (Protonix). Continue to take this medicine twice daily until you follow up with GI. Follow a low fat diet. The GI office will be reaching out to you to schedule follow up and your endoscopy. You were also treated for bronchitis with steroids (prednisone) and doxycycline. Short courses of these medicines have been sent to your pharmacy. An inhaler has also been sent that you can use as needed. It was a pleasure taking care of you. If you need to reach a member of the [facility] Hospitalist team at [facility], please call [phone]. MARIANA Montes Pending Studies at Discharge: No Stand-Alone Forms: My [facility], Smoking Cessation Medications and DC Order Prescriptions: New hydrocodone-acetaminophen 5-325 mg tablet 1 tab PO Q6H PRN (Reason: pain) Qty: 14 RF: 0 doxycycline hyclate 100 mg Capsule 100 mg PO BID Qty: 8 RF: 0 prednisone 20 mg Tablet 40 mg PO DAILY Qty: 6 RF: 0 albuterol sulfate [Ventolin HFA] 90 mcg/actuation Hfa Aerosol Inhaler 2 puff inhalation Q4H PRN (Reason: shortness of breath or wheezing) Qty: 6.7 RF: 0 guaifenesin [Mucinex] 600 mg Tablet Extended Release 12hr 1,200 mg PO Q12 PRN (Reason: congestion) Qty: 14 RF: 0 pantoprazole [Protonix] 40 mg tablet,delayed release (DR/EC) 40 mg PO BID Qty: 60 RF: 0 Continued levothyroxine 150 mcg tablet 150 mcg PO QAM RF: 0 Discharge Orders: Discharge Order (Routine); Ordered 09/02/21 Ordered By: Ritu Sun/Other Patient Handouts: ED Diet, Low Fat Admission Data Admit Date/Time: 08/31/21 02:14 Attending Provider: Milka Alaniz Admit Provider: Ishmael Walker Primary Care Provider: Margoth Winslow Other Providers: Ishmael Walker ; Joanne Coles Other Interventions: Discharge Summary Assessment (RN) Last Done: 09/02/21 12:58
[2021-09-02 22:39] LABS: Immunoglobulin G4 38.6 mg/dL (4.0-86.0)
== END 2021-09-02 13:53 | disposition home or self-care (01) ==
LOC: ED 20:16 → SUATTDRO 08-31 02:14 → INTOOBSV 08-31 02:14 → 3E 08-31 02:14